=== PATIENT | male | born 1980 | race Two or more races ===

== ENCOUNTER 2024-11-16 18:45 | Emergency (ER) | payer BC, OTHER ==
[~2024-11-16] VITALS: Ht 182.9 cm; Wt 117.6 kg
[2024-11-16 19:52] LABS: Hematocrit 48.9 % (41.0-53.0); Hemoglobin 17.2 g/dL (13.5-17.5); Mean Corpuscular Hemoglobin 30.5 pg (28.0-32.0); Mean Corpuscular Volume 86.8 fL (80.0-100.0); Nucleated Red Blood Cells % 0.3 %
--- NOTE | 2024-11-16 20:07 | DVH ---
Exam: CT CT AB PEL WO CON-NO ORAL OR IV History: epig pain Comparison Study: CT ABD/PEL on DOS: 09/11/24 TECHNIQUE: Multidetector CT of the abdomen and pelvis was performed from lung bases to pubic symphysi s. Imaging was performed without IV contrast. Axial, coronal, and sagittal multiplanar reformats were obtained from the axial data set by the technologist. RADIATION DOSE: CTDI vol 22.90 mGy. DLP 1379.61 mGy.cm Findings: Limited evaluation of the solid organs in the absence of IV contrast. Lungs: The lung bases are clear. Liver: Hepatomegaly. Spleen: Splenomegaly measuring up to 14.6 cm. Pancreas: Unremarkable. Gallbladder: Prior cholecystectomy. Adrenals: Unremarkable Kidneys: Unremarkable. Pelvic Viscera: Unremarkable. Vasculature: Unremarkable. Retroperitoneum: Shotty retroperitoneal nodes. Bowel: No bowel obstruction. Musculoskeletal: A Schmorl's node encroaches upon the superior endplate of L3. Soft tissues: Moderate-sized right inguinal hernia containing bowel. Impression: 1. No acute abdominopelvic abnormality. 2. Hepatosplenomegaly. 3. Additional findings as detailed.
[2024-11-16 20:10] LABS: Alanine Aminotransferase 29 U/L (7-40); Albumin 4.4 g/dL (3.2-4.8); Alkaline Phosphatase 113 U/L (46-116); Anion Gap 7 (5-15); BUN/Creatinine Ratio 20.0 (10.0-20.0); Bilirubin, Total 1.0 mg/dL (0.2-1.0); Blood Urea Nitrogen 14 mg/dL (9-23); Calcium 9.0 mg/dL (8.7-10.4); Carbon Dioxide 28 mmol/L (20-31); Chloride 103 mmol/L (98-107); Glucose 92 mg/dL (74-106); Lipase 32 U/L (12-53); Potassium 4.2 mmol/L (3.5-5.1); Sodium 138 mmol/L (136-145); Total Protein 7.0 g/dL (5.7-8.2)
--- NOTE | 2024-11-16 20:39 | ED.PDOC ---
GI ASSESSMENT HPI Comments HPI: 44 year old male presents to the emergency department with a chief complaint of abdominal pain onset today (11/16/24) around 17:00. Patient has been experiencing constant, unspecified abdominal pain, tried Ibuprofen with no relief of symptoms. Patient has a RT inguinal hernia, has an appointment with general surgeon for a surgery date. Patient states he experiences this pain intermittently, has been constant since 17:00. Denies any nausea, vomiting, diarrhea, dysuria, hematuria, fever, chills, chest pain, shortness of breath, melena, blood in stool. No other symptoms or modifying factors present at this time. Initial Vitals BP: 131/76 HR: 66 RR: 16 O2: 98% Temp: 97.6 F Past Medical History: RT inguinal hernia Past Surgical History: cholecystectomy Social History: Denies ETOH, smoking, and drug use. Medications: Denies Allergies: NKDA ELIZARRA: ABD PAIN HPI: Poor Historian. REVIEW OF SYSTEMS: CONSTITUTIONAL: Denies acute: fever, diaphoresis, chills, generalized weakness. HEAD: Denies acute: headache, photophobia Eyes: Denies acute: Double vision, vision loss, eye pain, eye discharge. EARS: Denies acute: tinnitus, hearing loss, ear discharge, ear pain, THROAT: Denies acute: sore throat, swelling, difficulty swallowing , pain with swallowing, change in voice. NECK: Denies acute: neck pain, neck swelling, stiff neck. HEART: Denies acute : chest pain, palpitations, LUNGS: Denies acute: SOB, wheezing, cough, hemoptysis ABDOMEN: Denies acute: abdominal pain, Nausea, Vomiting, diarrhea, melena , hematemesis, hematochezia SKIN: Denies acute: rash, redness, lesions, itchiness. EXTREMITIES: Denies acute: calf pain, numbness, tingling, weakness, denies pain in extremity. Denies acute: Low back pain. Neuro: Denies acute: focal neurological deficit, motor or sensory focal neurological deficit, tremors, seizure like activity, confusion, dizziness, change in mental status, loss of bowel or bladder function, cauda equina like symptoms. : Denies acute: dysuria, hematuria, flank pain, increase in urinary frequency. PSYCH: Denies acute: hallucination, suicidal ideation, homicidal ideation. PHYSICAL EXAM: General: -----mild---acute distress, awake and alert. Head: normocephalic, atraumatic. Neck: supple, trachea is midline, no swelling. Throat: Normal phonation. Eyes:, no erythema, no purulent discharge, no proptosis, no icterus. Heart: regular rate, regular rhythm, no significant murmur appreciated. Lungs: no apparent respiratory distress, Able to speak in full sentences. No wheezing, no rhonchi, no crackles. No stridors Clear to auscultation bilaterally. Abdomen: Left upper quadrant , right lower mid axillary line, tender to palpation, right lower quadrant tenderness to palpation. non distended, soft, no guarding, no rebound, + bowel sounds. Neuro: Awake, Alert, oriented to name, self, situation, follows commands GCS=15. Speech is normal. Skin: no petechia, no purpura, no cyanosis, non-pale, not jaundice. Lower extremities: --no - Pitting edema no deformity, no focal swelling, no calf TTP. Makes eye contact. moves all four extremities. Face: no apparent facial droop. Ambulating in the ED independently. ED COURSE: DISCLAIMER: This medical document was created using an electronic medical record system with voice recognition software and computerized dictation system. Although this document has been carefully reviewed, there might still be some phonetic and typographical errors. Occasional wrong-word or "sound-alike" substitutions may have occurred due to the inherent limitations of voice recognition software. These areas are purely typographical due to imperfections of the software programs and do not reflect any compromise in the patient's medical care. Please read the chart carefully and recognize, using context, where these substitutions have occurred. Chief Complaint: Abdominal Pain Time Seen by MD: 20:30 Reviewed Notes: Medications, Allergies Allergies: Coded Allergies: No Known Drug Allergy (Verified Allergy, Unknown, 11/16/24) Information Source: Patient Mode of Arrival: Ambulatory Timing: Hours Duration: Since onset Prehospital treatment: None Quality: Sharp Vomitus: None Severity: Moderate Recent: None Recent Hx of: None Pain Location: Epigastric Modifying Factors: Nothing Associated sign and symptoms: Nausea, Abdominal Pain Past Medical History PAST MEDICAL HISTORY: Denies Surgical History: Cholecystectomy Family History Family History: Reviewed,noncontributory to illness, No family hx of Cancer, No family hx of DM, No family hx of Heart trish, No family hx of HTN, No family hx ofKidney trish, No family hx of Liver trish, No family hx of Lung trish, No family hx of Stroke Social History Smoker: Non-Smoker Alcohol: Denies ETOH Use Drugs: Denies Drug Use Lives In: Home Was a procedure done? Was a procedure done?: No GI differential Dx Differential Diagnosis: Other (DDX include but not limited to diverticulitis, colitis, gastroenteritis, acute abdomen, SBO, enteritis, constipation, volvulus, appendicitis, Gallbladder disease, choledocolithiasis, ascending cholangitis, pancreatitis, intraAbdominal mass/neoplasm, hepatitis, UTI, pylonephritis, kidney stone, aneurysm, dissection, Inflammatory bowel disease, gastroparesis, ischemic bowel.) X-Ray, Labs, Meds, VS Vital Signs Date Time Temp Pulse Resp B/P (MAP) Pulse Ox O2 Delivery O2 Flow Rate FiO2 11/16/24 22:44 98.4 18 18 130/98 (109) 97 98.4 11/16/24 21:13 97.5 61 20 133/75 (94) 100 97.5 11/16/24 18:49 97.6 66 16 131/76 98 97.6 Lab Test 11/16/24 20:35 11/16/24 19:25 Range/Units Urine Color Light-yellow Yellow Urine Clarity Clear Clear Urine pH 5.5 5.0-9.0 Urine Specific [place] 1.020 1.001-1.035 Urine Protein Negative Negative Urine Ketones Negative Negative Urine Blood Negative Negative /uL Urine Nitrite Negative Negative Urine Bilirubin Negative Negative Urine Urobilinogen Normal Negative mg/dL Urine Leukocyte Esterase Negative Negative /uL Urine RBC 2 0 - 3 /hpf Urine Microscopic WBC 5 H 0-3 /HPF Urine Squamous Epithelial Cells Few <5 /hpf Urine Bacteria None seen None Seen /hpf Urine Glucose Normal Normal mg/dL Urine Opiates Screen Neg NEGATIVE Urine Fentanyl Screen Neg NEGATIVE Urine Barbiturates Screen Neg NEGATIVE Urine Phencyclidine Screen Neg NEGATIVE Urine Amphetamines Screen Neg NEGATIVE Urine Benzodiazepines Screen Neg NEGATIVE Urine Cocaine Screen Neg NEGATIVE Urine Cannabinoids Screen Neg NEGATIVE White Blood Count 9.8 4.4-10.8 10^3/uL Red Blood Count 5.63 4.5-5.90 10^6/uL Hemoglobin 17.2 13.5-17.5 g/dL Hematocrit 48.9 41.0-53.0 % Mean Corpuscular Volume 86.8 80.0-100.0 fL Mean Corpuscular Hemoglobin 30.5 28.0-32.0 pg Mean Corpuscular Hemoglobin Concent 35.2 32.0-36.0 g/dL Red Cell Distribution Width 13.4 11.8-14.3 % Platelet Count 137 L 140-450 10^3/uL Mean Platelet Volume 9.9 6.9-10.8 fL Neutrophils (%) (Auto) 64.2 37.0-80.0 % Lymphocytes (%) (Auto) 27.7 10.0-50.0 % Monocytes (%) (Auto) 5.8 0.0-12.0 % Eosinophils (%) (Auto) 1.9 0.0-7.0 % Basophils (%) (Auto) 0.4 0.0-2.0 % Neutrophils # (Auto) 6.3 1.6-8.6 10 ^3/uL Lymphocytes # (Auto) 2.7 0.4-5.4 10 ^3/uL Monocytes # (Auto) 0.6 0-1.3 10 ^3/uL Eosinophils # (Auto) 0.2 0-0.8 10 ^3/uL Basophils # (Auto) 0 0-0.2 10 ^3/uL Nucleated Red Blood Cells 0.3 % Sodium Level 138 136-145 mmol/L Potassium Level 4.2 3.5-5.1 mmol/L Chloride Level 103 98-107 mmol/L Carbon Dioxide Level 28 20-31 mmol/L Anion Gap 7 5-15 Blood Urea Nitrogen 14 9-23 mg/dL Creatinine 0.70 0.700-1.30 mg/dL Glomerular Filtration Rate Calc 116 >90 mL/min BUN/Creatinine Ratio 20.0 10.0-20.0 Serum Glucose 92 74-106 mg/dL Lactic Acid Level 0.8 0.4-2.0 mmol/L Calcium Level 9.0 8.7-10.4 mg/dL Total Bilirubin 1.0 0.2-1.0 mg/dL Aspartate Amino Transferase (AST) 25 13-40 U/L Alanine Aminotransferase (ALT) 29 7-40 U/L Alkaline Phosphatase 113 46-116 U/L Troponin I High Sensitivity 51 </=54 ng/L Total Protein 7.0 5.7-8.2 g/dL Albumin 4.4 3.2-4.8 g/dL Lipase 32 12-53 U/L [facility] [id number] [place] [address] Ph: [phone] DIAGNOSTIC IMAGING Diagnostic Imaging Report : [id number] Signed PATIENT: CA RAMACHANDRANACCT: [id number] UNIT: [id number] : 1980 LOC: ER ROOM / BED: / AGE / SEX: 44 / M ADM STATUS: REG ER SERVICE 15 ORDERING PHYSICIAN: BRETT ELIAS DO PROCEDURE(s): ABPL - CT AB PEL WO CON-NO ORAL OR IV REASON: epig pain ORDER NUMBER(s): [id number], ACCESSION NUMBER(s): [id number] Exam: CT CT AB PEL WO CON-NO ORAL OR IV History: epig pain Comparison Study: CT ABD/PEL on DOS: 09/11/24 TECHNIQUE: Multidetector CT of the abdomen and pelvis was performed from lung bases to pubic symphysis. Imaging was performed without IV contrast. Axial, coronal, and sagittal multiplanar reformats were obtained from the axial data set by the technologist. RADIATION DOSE: CTDI vol 22.90 mGy. DLP 1379.61 mGy.cm Findings: Limited evaluation of the solid organs in the absence of IV contrast. Lungs: The lung bases are clear. Liver: Hepatomegaly. Spleen: Splenomegaly measuring up to 14.6 cm. Pancreas: Unremarkable. Gallbladder: Prior cholecystectomy. Adrenals: Unremarkable Kidneys: Unremarkable. Pelvic Viscera: Unremarkable. Vasculature: Unremarkable. Retroperitoneum: Shotty retroperitoneal nodes. Bowel: No bowel obstruction. Musculoskeletal: A Schmorl's node encroaches upon the superior endplate of L3. Soft tissues: Moderate-sized right inguinal hernia containing bowel. Impression: 1. No acute abdominopelvic abnormality. 2. Hepatosplenomegaly. 3. Additional findings as detailed. ATED BY: PARIS LEONARD MD DICTATED DATE/TIME: 11/16/242003 SIGNED BY: PARIS LEONARD MD SIGNED DATE/TIME: 11/16/242003 CC: Time of 1ST Reevaluation: 21:00 Reevaluation 1ST: Unchanged Patient Education/Counseling: Diagnosis, Treatment Family Education/Counseling: No Family Present Comments MDM: patient presented with the above HPI.---abdominal pain---workup was initiated. patient was found with the above mentioned diagnosis. the following medications were ordered: please refer to order lists of meds and tests obtained by myself Dr. Elias. Patient ED course and VS have been stabilized. Patient has been reassessed in the ED and remained in a stable condition. Pertinent incidental findings were discussed with the patient and/or family. Patient/family voices understanding and is agreeable with plan. Patient has been observed in the ED adequate length of time to insure improvement/stability. Escalation of care considered: Consideration of escalation to observation or admission Patient was DISCHARGED home in a stable condition. All the reports of any imaging studies that were ordered by myself were reviewed by myself. Departure 1 Departure Time of Disposition: 21:54 Impression: Primary Impression: Abdominal pain Additional Impression: Hepatosplenomegaly Disposition: 01 HOME / SELF CARE / HOMELESS Condition: Stable Additional Instructions: Additional instructions: Please read all instructions provided in this packet carefully. You MUST follow-up with your primary care/family doctor in 1 to 2 days. If you are unable to see your primary care/family doctor, please return to our emergency room for re-assessment and re-evaluation in 1 to 2 days. Return to the emergency room here in our facility or to the nearest ER [facility] if your symptoms change or worsen. CONSULTATIONS: you MUST Follow-up for consultation as soon as possible with: -general surgery and gastroenterology in 1-2 days. Please call for appointment. You MUST call the consultants office yourself to make an appointment. You may need to arrange that through your insurance and/or your primary/family doctor. If you are unable to see the telecommunications consultant in 1 to 2 days, you must return to our emergency room (or any other ER of your choice) for re-assessment and re- evaluation. Adequate fluid hydration. Although you have been discharged from the Emergency Department, this does not mean that you have a "clean bill of health". No definitive diagnosis for your symptoms has been made today. It is possible that you are in the process of developing a serious illness. This is why you must return to the ED without fail if any new or worsening symptoms develop. Avoid fatty greasy spicy food. Avoid caffeinated products. Avoid NSAIDs. Below is a copy of your radiological report for follow up: [place] [address] Ph: [phone] DIAGNOSTIC IMAGING Diagnostic Imaging Report : [id number] Signed PATIENT: CA RAMACHANDRAN ACCT: [id number] UNIT: [id number] : 1980 LOC: ER ROOM / BED: / AGE / SEX: 44 / M ADM STATUS: REG ER SERVICE 15 ORDERING PHYSICIAN: BRETT ELIAS DO PROCEDURE(s): ABPL - CT AB PEL WO CON-NO ORAL OR IV REASON: epig pain ORDER NUMBER(s): [id number], ACCESSION NUMBER(s): [id number] Exam: CT CT AB PEL WO CON-NO ORAL OR IV History: epig pain Comparison Study: CT ABD/PEL on DOS: 09/11/24 TECHNIQUE: Multidetector CT of the abdomen and pelvis was performed from lung bases to pubic symphysis. Imaging was performed without IV contrast. Axial, coronal, and sagittal multiplanar reformats were obtained from the axial data set by the technologist. RADIATION DOSE: CTDI vol 22.90 mGy. DLP 1379.61 mGy.cm Findings: Limited evaluation of the solid organs in the absence of IV contrast. Lungs: The lung bases are clear. Liver: Hepatomegaly. Spleen: Splenomegaly measuring up to 14.6 cm. Pancreas: Unremarkable. Gallbladder: Prior cholecystectomy. Adrenals: Unremarkable Kidneys: Unremarkable. Pelvic Viscera: Unremarkable. Vasculature: Unremarkable. Retroperitoneum: Shotty retroperitoneal nodes. Bowel: No bowel obstruction. Musculoskeletal: A Schmorl's node encroaches upon the superior endplate of L3. Soft tissues: Moderate-sized right inguinal hernia containing bowel. Impression: 1. No acute abdominopelvic abnormality. 2. Hepatosplenomegaly. 3. Additional findings as detailed. ATED BY: PARIS LEONARD MD DICTATED DATE/TIME: 11/16/242003 SIGNED BY: PARIS LEONARD MD SIGNED DATE/TIME: 11/16/242003 CC: Discharged With: Self Critical Care Note Critical Care Time?: No I personally scribed for BRETT ELIAS DO ([email or web address]) on 11/16/24 at 20:39. Electronically submitted by Meaghan Sanchez ([email or web address]). BRETT ELIAS DO Nov 16, 2024 20:39
[2024-11-16 21:10] LABS: Urine Protein, UAD Negative (Negative)
[2024-11-16 21:19] LABS: Amphetamine Screen, Urine Neg (NEGATIVE); Barbiturate Scree,Urine Neg (NEGATIVE); Benzodiazephine Screen, Urine Neg (NEGATIVE); Cannabinoid Screen, Urine Neg (NEGATIVE); Cocaine Screen, Urine Neg (NEGATIVE); Opiate Scree,Urine Neg (NEGATIVE); Phencyclidine Screen, Urine Neg (NEGATIVE)
[2024-11-16] MEDS: LIDOCAINE VISCOUS 2% 15ML UD PO ONE (22:40)
[2024-11-16] MEDS: SUCRALFATE 1 GM TAB PO ONE (22:40)
[2024-11-16] MEDS: PANTOPRAZOLE 40 MG TAB PO ONE (22:40)
[2024-11-16 22:44] VITALS: BP 130/98; PULSE 18; RESP 18; TEMP 98.4; O2SAT 97
[2024-11-16] MEDS: KETOROLAC TROMETH 30 MG/ML 1ML VIAL IV ONE (22:45)
== END 2024-11-16 22:50 | disposition home or self-care (01) ==
LOC: ER 18:50
DX: R16.2 Hepatomegaly with splenomegaly, not elsewhere classified (principal); R10.9 Unspecified abdominal pain; Z90.49 Acquired absence of other specified parts of digestive tract; Z79.899 Other long term (current) drug therapy
CPT/HCPCS: 36415; 74176; 80053; 80307; 81001; 83605; 83690; 84484; 85025; 96374; 99285; J1885

== ENCOUNTER 2024-11-24 13:22 | Inpatient (IN) | payer BC ==
[~2024-11-24] VITALS: Ht 182.9 cm; Wt 115.2 kg
--- NOTE | 2024-11-24 14:07 | ED.PDOC ---
GI ASSESSMENT HPI Comments 44 y/o M, with no prior medical history presents to the ED for CC of of abdominal pain. Patient states, he has been experiencing diffuse abdominal pain with associated nausea and vomiting x1day. Patient reports, that he is supposed to receive a hernia repair surgery on (12/07/24). Patient denies diarrhea, chills, fever, or sweats. No other symptoms or modifying factors are present at this time. Chief Complaint: Abdominal Pain Time Seen by MD: 13:30 Reviewed Notes: Nurses Notes, Medications, Allergies Allergies: Coded Allergies: No Known Drug Allergy (Verified Allergy, Unknown, 11/16/24) Information Source: Patient Mode of Arrival: Ambulatory Timing: Days Duration: Since onset Prehospital treatment: None Quality: None Vomitus: Watery Stool: Normal Severity: Moderate Recent: None Recent Hx of: None Pain Location: Diffuse Modifying Factors: Nothing Associated sign and symptoms: Vomiting, Abdominal Pain Past Medical History PAST MEDICAL HISTORY: Denies Surgical History: Cholecystectomy Family History Family History: Reviewed,noncontributory to illness, No family hx of Cancer, No family hx of DM, No family hx of Heart trish, No family hx of HTN, No family hx ofKidney trish, No family hx of Liver trish, No family hx of Lung trish, No family hx of Stroke Social History Smoker: Non-Smoker Alcohol: Denies ETOH Use Drugs: Denies Drug Use Lives In: Home Constitutional: denies: chills, diaphoresis, fatigue, fever, malaise, sweats, weakness, others EENTM: denies: blurred vision, double vision, ear bleeding, ear discharge, ear drainage, ear pain, ear ringing, eye pain, eye redness, hearing loss, mouth pain, mouth swelling, nasal discharge, nose bleeding, nose congestion, nose pain, photophobia, tearing, throat pain, throat swelling, voice changes, others Respiratory: denies: cough, hemoptysis, orthopnea, SOB at rest, shortness of breath, SOB with excertion, stridor, wheezing, others Cardiovascular: denies: chest pain, dizzy spells, diaphoresis, Dyspnea on exertion, edema, irregular heart beat, left arm pain, lightheadedness, palpitations, PND, syncope, others Gastrointestinal: reports: abdominal pain, nausea, vomiting; denies: abdomen distended, blood streaked bowels, constipated, diarrhea, dysphagia, difficulty swallowing, hematemesis, melena, poor appetite, poor fluid intake, rectal bleeding, rectal pain, others Genitourinary: denies: burning, dysuria, flank pain, frequency, hematuria, incontinence, penile discharge, penile sore, pain, testicle pain, testicle swelling, urgency, others Neurological: denies: dizziness, fainting, headache, left sided numbness, left sided weakness, numbness, paresthesia, pre-existing deficit, right sided numbness, right sided weakness, seizure, speech problems, tingling, tremors, weakness, others Musculoskeletal: denies: back pain, gout, joint pain, joint swelling, muscle pain, muscle stiffness, neck pain, others Integumetry: denies: bruises, change in color, change in hair/nails, dryness, laceration, lesions, lumps, rash, wounds, others Allergic/Immunocompromised: denies: Difficulty Healing, Frequent Infections, Hives, Itching, others Hematologic/Lymphatic: denies: anemia, blood clots, easy bleeding, easy bruising, swollen glands, others Endocrine: denies: excessive hunger, excessive sweating, excessive thirst, excessive urination, flushing, intolerance to cold, intolerance to heat, unexplained weight gain, unexplained weight loss, others Psychiatric: denies: anxiety, bipolar disorder, depression, hopeless, panic disorder, schizophrenia, sleepless, suicidal, others All Other Systems: Reviewed and Negative Physical Exam General Appearance: No Apparent Distress, Normal HEENT: Normal ENT Inspection, Pharynx Normal Neck: Full Range of Motion, Non-Tender, Normal, Normal Inspection Respiratory: Chest Non-Tender, Lungs Clear, No Accessory Muscle Use, No Respiratory Distress, Normal Breath Sounds Cardiovascular: No Edema, No Murmur, No Gallop, Normal Peripheral Pulses, Regular Rate/Rhythm Breast Exam: Deferred Gastrointestinal: Diffuse, No Organomegaly, No Pulsatile Mass, Normal Bowel Sounds, Soft, Tenderness Genitalia: Deferred Pelvic: Deferred Rectal: Deferred Extremities: No calf tenderness, Normal capillary refill, Normal inspection, Normal range of motion, Non-tender, No pedal edema Musculoskeletal : Apperance: Normal Neurologic: Alert, logistics engineer II-XII nml as Tested, No Motor Deficits, Normal Affect, Normal Mood, No Sensory Deficits Cerebellar Function: Normal Reflexes: Normal Skin: Dry, Normal Color, Warm Lymphatic: No Adenopathy Was a procedure done? Was a procedure done?: No GI differential Dx Differential Diagnosis: Hernia, Bacterial, Viral X-Ray, Labs, Meds, VS Vital Signs Date Time Temp Pulse Resp B/P (MAP) Pulse Ox O2 Delivery O2 Flow Rate FiO2 11/24/24 15:38 65 19 125/79 11/24/24 13:25 98.1 85 16 143/78 95 98.1 Lab Test 11/24/24 14:04 Range/Units White Blood Count 9.3 4.4-10.8 10^3/uL Red Blood Count 6.00 H 4.5-5.90 10^6/uL Hemoglobin 18.0 H 13.5-17.5 g/dL Hematocrit 51.9 41.0-53.0 % Mean Corpuscular Volume 86.5 80.0-100.0 fL Mean Corpuscular Hemoglobin 30.0 28.0-32.0 pg Mean Corpuscular Hemoglobin Concent 34.7 32.0-36.0 g/dL Red Cell Distribution Width 13.2 11.8-14.3 % Platelet Count 148 140-450 10^3/uL Mean Platelet Volume 9.4 6.9-10.8 fL Neutrophils (%) (Auto) 69.2 37.0-80.0 % Lymphocytes (%) (Auto) 20.4 10.0-50.0 % Monocytes (%) (Auto) 7.3 0.0-12.0 % Eosinophils (%) (Auto) 2.5 0.0-7.0 % Basophils (%) (Auto) 0.6 0.0-2.0 % Neutrophils # (Auto) 6.4 1.6-8.6 10 ^3/uL Lymphocytes # (Auto) 1.9 0.4-5.4 10 ^3/uL Monocytes # (Auto) 0.7 0-1.3 10 ^3/uL Eosinophils # (Auto) 0.2 0-0.8 10 ^3/uL Basophils # (Auto) 0.1 0-0.2 10 ^3/uL Nucleated Red Blood Cells 0.0 % Sodium Level 137 136-145 mmol/L Potassium Level 4.1 3.5-5.1 mmol/L Chloride Level 103 98-107 mmol/L Carbon Dioxide Level 26 20-31 mmol/L Anion Gap 8 5-15 Blood Urea Nitrogen 12 9-23 mg/dL Creatinine 0.71 0.700-1.30 mg/dL Glomerular Filtration Rate Calc 115 >90 mL/min BUN/Creatinine Ratio 16.9 10.0-20.0 Serum Glucose 116 H 74-106 mg/dL Calcium Level 8.9 8.7-10.4 mg/dL Current Medications Medications (Trade) Dose Ordered Sig/Yg Route Start Time Stop Time Status Last Admin Sodium Chloride 1,000 ml @ 1,000 mls/hr Q1H ONCE IV 11/24/24 13:45 11/24/24 14:44 DC 11/24/24 15:36 Morphine Sulfate 4 mg ONCE ONCE IV 11/24/24 13:45 11/24/24 13:46 DC 11/24/24 15:38 Ondansetron HCl (Zofran) 4 mg ONCE ONCE IV 11/24/24 13:45 11/24/24 13:46 DC 11/24/24 15:38 [place] [id number] Ph: [phone] DIAGNOSTIC IMAGING Diagnostic Imaging Report : [id number] Signed PATIENT: CA RAMACHANDRANACCT: [id number] UNIT: [id number] : 1980 LOC: ER ROOM / BED: / AGE / SEX: 44 / M ADM STATUS: REG ER SERVICE 1342 ORDERING PHYSICIAN: SANYA CHAVEZ MD PROCEDURE(s): ABPLIV - CT AB PEL WITH IV CON ONLY REASON: abdominal pain ORDER NUMBER(s): [id number], ACCESSION NUMBER(s): [id number] Indication: abdominal pain Technique: CT axial images of the abdomen and pelvis are obtained without contrast. Reformats obtained. Radiation Dose Information: CTDI volume is 23 mGy. Dose-length product is 1409 mGy*cm Comparison: None FINDINGS: There is limited interpretation of the abdomen and pelvis without administration of intravenous contrast. The lung bases demonstrate no pleural effusion. Adrenal glands, pancreas unremarkable in shape. Cholecystectomy. Cirrhotic mo rphology liver. Spleen enlarged measuring 13.1 cm craniocaudal. No hydronephrosis. Stomach is partially distended. Colonic diverticula. Moderate volume stool in the colon. No secondary signs for appendicitis. There is bowel wall thickening of the terminal ileum. Fecal like contents within the small bowel. Moderate distention small bowel loops. Abdominal aorta normal in caliber. Bladder partially distended. There is a right inguinal hernia which contains small bowel measuring 18 x 8.3 cm. There is a small amount of fluid within the hernia. There is inflammatory stranding of the fat within the hernia as well as the placenta leading into the hernia from the lower abdomen/pelvis Bladder partially distended. No inguinal lymphadenopathy. Moderate bilateral sacroiliac degenerative joint disease. Moderate thoracolumbar degenerative disc disease. IMPRESSION: Limited evaluation without contrast. Large right inguinal hernia containing small bowel loops measuring 18 x 8.3 cm. There is fluid within the hernia. There is also mild stranding of the fat. Correlate for incarceration / strangulation. Recommend surgical consultation for further evaluation. Bowel wall edema and thickening of the terminal ileum which could be secondary to inflammatory bowel disease, enteritis. Fecal like contents within the small bowel which can be seen with ileus, hypomotility, bowel obstruction. Cirrhotic morphology liver, splenomegaly. Moderate volume stool within the colon. Other findings as described. ATED BY: DOMINIQUE MIRANDA MD DICTATED DATE/TIME: 11/24/241628 SIGNED BY: DOMINIQUE MIRANDA MD SIGNED DATE/TIME: 11/24/241628 CC: Time of 1ST Reevaluation: 14:00 Reevaluation 1ST: Unchanged Patient Education/Counseling: Diagnosis, Treatment Family Education/Counseling: No Family Present SEPSIS Sepsis Screen Date sepsis recognized/suspect: Nov 24, 2024 Time Sepsis recognized/suspect: 1326 Recent Procedure: No On Antibiotic Therapy: No Respiratory Rate >20: No Heart Rate >90: No Temp<36 C (96.8 F) or >38.3 C: No SBP <90 or MAP <65 mmHG: No New Acute Mental Status Change: No Is the patient on CPAP, BIPAP,: No Physician Orders Ct Ab Pel With Iv Con Only (11/24/24 13:42) Vital Signs Date Time Temp Pulse Resp B/P (MAP) Pulse Ox O2 Delivery O2 Flow Rate FiO2 11/24/24 15:38 65 19 125/79 11/24/24 13:25 98.1 85 16 143/78 95 98.1 Laboratory Tests Test 11/24/24 14:04 White Blood Count 9.3 10^3/uL (4.4-10.8) Medications Medications Dose Ordered Sig/Yg Route Start Time Stop Time Status Last Admin Dose Admin Morphine Sulfate 4 mg ONCE ONCE IV 11/24/24 13:45 11/24/24 13:46 DC 11/24/24 15:38 Ondansetron HCl 4 mg ONCE ONCE IV 11/24/24 13:45 11/24/24 13:46 DC 11/24/24 15:38 Sodium Chloride 1,000 ml @ 1,000 mls/hr Q1H ONCE IV 11/24/24 13:45 11/24/24 14:44 DC 11/24/24 15:36 Departure 1 Departure Time of Disposition: 17:06 (Patient presented with abdominal pain that was concerning for possible appendicits, gastritis, cholecystitis, colitis, gastroenteritis, sbo, or orther possible surgical emergency. Data: 1. I ordered and reviewed the result of at least 3 labs including a CBC, BMP, and Urinalysis. 2. I independently interpreted the following tests: CT Abdomen and Pelvis is concerning for incarcerated already .Risk:This patient has a high risk of morbidity due to further diagnostic testing or treatment and may suffer from an acute abdominal process disorder. Workup reveals possible incarcerated hernia and patient should be admitted for further workup. and possible expert consultation. Discussed with surgery and they are come and evaluate the patient) Impression: Primary Impression: Incarcerated hernia Additional Impression: Intractable abdominal pain Disposition: ADMITTED INPATIENT Admit to: Med Surg Condition: Serious Critical Care Note Critical Care Time?: Yes Critical care comment: Intractable abdominal pain concerning for incarcerated hernia Authorized and Performed by: Sanya Chavez MD Total critical care time: Approximately 39 minutes Due to a high probability of clinically significant, life threatening deterioration, the patient required my highest level of preparedness to intervene emergently and I personally spent this critical care time directly and personally managing the patient. This critical care time included obtaining a history; examining the patient; pulse oximetry; ordering and review of studies; arranging urgent treatment with development of a management plan; evaluation of patient's response to treatment; frequent reassessment; and, discussions with other providers. This critical care time was performed to assess and manage the high probability of imminent, life-threatening deterioration that could result in multi-organ failure. It was exclusive of separately billable procedures and treating other patients and teaching time. Please see my other sections and the rest of the note for further information on patient assessment and treatment. Stability Stability form required: No Heart Score Heart Score: Heart Score Response (Comments) Value History N/A 0 EKG N/A 0 Age N/A 0 Risk Factors N/A 0 Troponin N/A 0 Total 0 I personally scribed for SANYA CHAVEZ MD ([email or web address]) on 11/24/24 at 14:07. Electronically submitted by Jenna Palm ([email or web address]). I personally scribed for SANYA CHAVEZ MD ([email or web address]) on 11/24/24 at 16:55. Electronically submitted by Jenna Palm [email or web address]). SANYA CHAVEZ MD Nov 24, 2024 14:07
[2024-11-24 14:11] LABS: Hematocrit 51.9 % (41.0-53.0); Hemoglobin 18.0 g/dL (13.5-17.5); Mean Corpuscular Hemoglobin 30.0 pg (28.0-32.0); Mean Corpuscular Volume 86.5 fL (80.0-100.0); Nucleated Red Blood Cells % 0.0 %
[2024-11-24 14:16] LABS: Chloride 103 mmol/L (98-107); Potassium 4.1 mmol/L (3.5-5.1); Sodium 137 mmol/L (136-145)
[2024-11-24 14:17] LABS: Anion Gap 8 (5-15); Calcium 8.9 mg/dL (8.7-10.4); Carbon Dioxide 26 mmol/L (20-31)
[2024-11-24 14:22] LABS: BUN/Creatinine Ratio 16.9 (10.0-20.0); Blood Urea Nitrogen 12 mg/dL (9-23)
[2024-11-24 14:23] LABS: Glucose 116 mg/dL (74-106)
[2024-11-24] MEDS: IOHEXOL 300 MG/ML 100ML BOTTLE IJ ONE (15:33)
[2024-11-24] MEDS: SODIUM CHLORIDE 0.9% 1,000 ML IV ONE (15:36)
[2024-11-24] MEDS: ONDANSETRON HCL 4 MG/2 ML VIAL IV ONE ×2 (15:38→18:18)
[2024-11-24] MEDS: MORPHINE SULFATE 4 MG/ML SYR/VIAL IV ONE ×2 (15:38→18:18)
--- NOTE | 2024-11-24 16:28 | DVH ---
Indication: abdominal pain Technique: CT axial images of the abdomen and pelvis are obtained without contrast. Reformats obtaine d. Radiation Dose Information: CTDI volume is 23 mGy. Dose-length product is 1409 mGy*cm Comparison: None FINDINGS: There is limited interpretation of the abdomen and pelvis without administration of intravenous contr ast. The lung bases demonstrate no pleural effusion. Adrenal glands, pancreas unremarkable in shape. Cholecystectomy. Cirrhotic morphology liver. Spleen enlarged measuring 13.1 cm craniocaudal. No hydronephrosis. Stomach is partially distended. Colonic diverticula. Moderate volume stool in the colon. No secondary signs for appendicitis. There i s bowel wall thickening of the terminal ileum. Fecal like contents within the small bowel. Moderate distention small bowel loops. Abdominal aorta normal in caliber. Bladder partially distended. There is a right inguinal hernia which contains small bowel measuring 18 x 8.3 cm. There is a small amount of fluid within the hernia. There is inflammatory stranding of the fat within the hernia as w ell as the placenta leading into the hernia from the lower abdomen/pelvis Bladder partially distended. No inguinal lymphadenopathy. Moderate bilateral sacroiliac degenerative joint disease. Moderate thoracolumbar degenerative disc disease. IMPRESSION: Limited evaluation without contrast. Large right inguinal hernia containing small bowel loops measuring 18 x 8.3 cm. There is fluid withi n the hernia. There is also mild stranding of the fat. Correlate for incarceration / strangulation. Recommend surgical consultation for further evaluation. Bowel wall edema and thickening of the terminal ileum which could be secondary to inflammatory bowel disease, enteritis. Fecal like contents within the small bowel which can be seen with ileus, hypomoti lity, bowel obstruction. Cirrhotic morphology liver, splenomegaly. Moderate volume stool within the colon. Other findings as described.
[2024-11-24 17:50] VITALS: PULSE 61; RESP 17; O2SAT 97
--- NOTE | 2024-11-24 17:52 | DVHINCON2 ---
Consultation - Surgical Date Seen: Nov 24, 2024 Referring Physician Reason for Consultation Right inguinal hernia History of Present Illness History of Present Illness this is a 44-year-old male who presented to the ED with epigastric abdominal pain, with occasional nausea and vomiting. States that this has been a recurrent problem and was seen in the ED for the same problem last week. He does not attribute his symptoms to any particular foods. States that he has reflux also and feels like acid is coming up into the esophagus, has never had an EGD before. Patient had a cholecystectomy done. States that he does not drink alcohol daily or take any NSAIDs in a daily basis, although he takes ibuprofen occasionally for pain. Patient denies any obstructive symptoms his last bowel movement was this morning he goes daily to the bathroom. Denies fevers, chills, changes in urinary or stooling habits. Denies any blood in the stool or emesis. I was consulted because he has a large right-sided inguinal hernia that has been present since September he is currently scheduled for surgery on December 07, [address] Starkey. Patient is able to reduce the hernia. Hernia causes him occasional pain. Past Medical/Surgical History Past Medical/Surgical History PMH: Cirrhosis PSH laparoscopic cholecystectomy Family and Social History Family and Social History Family history noncontributory ETOH occasional T Ob vapes daily Drugs denies Allergies and medications Allergies: Coded Allergies: No Known Drug Allergy (Verified Allergy, Unknown, 11/16/24) Review of systems Review of Systems: HEENT:Normal, CVS:Normal, RESPIRATORY:Normal, GI:Abnormal (See HPI), :Abnormal (See HPI), MSK:Normal, NEURO:Normal Examination Vital signs Vital Signs Date Time Temp Pulse Resp B/P (MAP) Pulse Ox O2 Delivery O2 Flow Rate FiO2 11/24/24 15:38 65 19 125/79 11/24/24 13:25 98.1 95 98.1 Laboratory Labs Test 11/24/24 14:04 Range/Units White Blood Count 9.3 4.4-10.8 10^3/uL Red Blood Count 6.00 H 4.5-5.90 10^6/uL Hemoglobin 18.0 H 13.5-17.5 g/dL Hematocrit 51.9 41.0-53.0 % Mean Corpuscular Volume 86.5 80.0-100.0 fL Mean Corpuscular Hemoglobin 30.0 28.0-32.0 pg Mean Corpuscular Hemoglobin Concent 34.7 32.0-36.0 g/dL Red Cell Distribution Width 13.2 11.8-14.3 % Platelet Count 148 140-450 10^3/uL Mean Platelet Volume 9.4 6.9-10.8 fL Neutrophils (%) (Auto) 69.2 37.0-80.0 % Lymphocytes (%) (Auto) 20.4 10.0-50.0 % Monocytes (%) (Auto) 7.3 0.0-12.0 % Eosinophils (%) (Auto) 2.5 0.0-7.0 % Basophils (%) (Auto) 0.6 0.0-2.0 % Neutrophils # (Auto) 6.4 1.6-8.6 10 ^3/uL Lymphocytes # (Auto) 1.9 0.4-5.4 10 ^3/uL Monocytes # (Auto) 0.7 0-1.3 10 ^3/uL Eosinophils # (Auto) 0.2 0-0.8 10 ^3/uL Basophils # (Auto) 0.1 0-0.2 10 ^3/uL Nucleated Red Blood Cells 0.0 % Sodium Level 137 136-145 mmol/L Potassium Level 4.1 3.5-5.1 mmol/L Chloride Level 103 98-107 mmol/L Carbon Dioxide Level 26 20-31 mmol/L Anion Gap 8 5-15 Blood Urea Nitrogen 12 9-23 mg/dL Creatinine 0.71 0.700-1.30 mg/dL Glomerular Filtration Rate Calc 115 >90 mL/min BUN/Creatinine Ratio 16.9 10.0-20.0 Serum Glucose 116 H 74-106 mg/dL Calcium Level 8.9 8.7-10.4 mg/dL Examination: GENERAL:Normal, ABDOMEN:Normal (Nondistended, soft, depressible, nontender. Right-sided inguinal hernia with large defect, intestinal contents, easily reducible, no overlying skin changes, mild tenderness on reduction.) Problem List/Assessment/Plan Problems: (1) Reducible right inguinal hernia Assessment and Plan is a 44-year-old male who presented to the ED with upper abdominal pain with occasional nausea and vomiting; he has had these symptoms in the past and states that the epigastric pain usually lasts 2-3 hours before self resolution. I was consulted due to large right-sided inguinal hernia. Hernia defect is 3.[address] was reviewed and I saw small bowel loops within the hernia sac in the scrotum, bowel wall lights up which means that it has adequate perfusion. I was able to reduce the hernia easily at bedside and patient states he is able to reduce the hernia home. At this point there is no indication for emergent hernia repair. He has an appointment on December 07, 2024 for hernia surgery with Dr. Starkey. Since patient is going to get admitted for possible EGD, I will let Dr. Starkey no that the patient is here in case he has other plans with the patient. Plan discussed with Plan discussed with: Patient Visit Coding Surgery Date of Service if different f: Nov 24, 2024 Billing Provider: VALERIA ABDALLA MD Surgery Visit Codes: 97462 - INP CONSULT <110 MIN VALERIA ABDALLA MD Nov 24, 2024 17:52
--- NOTE | 2024-11-24 18:10 | DVHHP2 ---
History of Present Illness Reason for Visit: Abdominal pain History of Present Illness 44-year-old presents for evaluation of abdominal pain. Patient endorses a one day history of epigastric abdominal pain with associated nausea and vomiting. He states having an upcoming right inguinal surgery scheduled for . No diarrhea or constipation. No fever or chills. Past Medical History Denies Past Surgical History Cholecystectomy Family History Noncontributory Smoke: No ALCOHOL: occassional Drugs: None Lives: with Family Review of Systems Review of Systems Review of systems are currently negative otherwise addressed in HPI. Allergies: Coded Allergies: No Known Drug Allergy (Verified Allergy, Unknown, 11/16/24) Exam Vital Signs Vital Signs Date Time Temp Pulse Resp B/P (MAP) Pulse Ox O2 Delivery O2 Flow Rate FiO2 11/24/24 15:38 65 19 125/79 11/24/24 13:25 98.1 95 98.1 Exam Gen: 44-year-old male in mild distress Skin: Warm, dry, normal color and texture, no rash. HEENT: Normocephalic atraumatic, mucous membranes moist and pink. Neck: Cervical and supraclavicular nodes normal without enlargement, trachea is midline, thyroid gland is normal without masses. Pulmonary: Clear to auscultation and percussion bilaterally. Cardiac: Regular rate and rhythm. No murmur Abdomen: Soft, nontender, nondistended, bowel sounds present all 4 quadrants, no guarding, no rigidity, no organomegaly, right inguinal hernia reducible. Extremities: No cyanosis, clubbing, no edema Neuro: Cranial nerves II through XII grossly intact, normal affect and speech, no focal motor deficits. Labs/Xrays ORDERING PHYSICIAN: SANYA IBRAHIM MD PROCEDURE(s): ABPLIV - CT AB PEL WITH IV CON ONLY REASON: abdominal pain ORDER NUMBER(s): [id number], ACCESSION NUMBER(s): [id number] Indication: abdominal pain Technique: CT axial images of the abdomen and pelvis are obtained without contrast. Reformats obtained. Radiation Dose Information: CTDI volume is 23 mGy. Dose-length product is 1409 mGy*cm Comparison: None FINDINGS: There is limited interpretation of the abdomen and pelvis without administration of intravenous contrast. The lung bases demonstrate no pleural effusion. Adrenal glands, pancreas unremarkable in shape. Cholecystectomy. Cirrhotic morphology liver. Spleen enlarged measuring 13.1 cm craniocaudal. No hydronephrosis. Stomach is partially distended. Colonic diverticula. Moderate volume stool in the colon. No secondary signs for appendicitis. There is bowel wall thickening of the terminal ileum. Fecal like contents within the small bowel. Moderate distention small bowel loops. Abdominal aorta normal in caliber. Bladder partially distended. There is a right inguinal hernia which contains small bowel measuring 18 x 8.3 cm. There is a small amount of fluid within the hernia. There is inflammatory stranding of the fat within the hernia as well as the placenta leading into the hernia from the lower abdomen/pelvis Bladder partially distended. No inguinal lymphadenopathy. Moderate bilateral sacroiliac degenerative joint disease. Moderate thoracolumbar degenerative disc disease. IMPRESSION: Limited evaluation without contrast. Large right inguinal hernia containing small bowel loops measuring 18 x 8.3 cm. There is fluid within the hernia. There is also mild stranding of the fat. Correlate for incarceration / strangulation. Recommend surgical consultation for further evaluation. Bowel wall edema and thickening of the terminal ileum which could be secondary to inflammatory bowel disease, enteritis. Fecal like contents within the small bowel which can be seen with ileus, hypomotility, bowel obstruction. Cirrhotic morphology liver, splenomegaly. Moderate volume stool within the colon. Other findings as described. Labs Test 11/24/24 18:00 11/24/24 14:04 Range/Units White Blood Count 9.3 4.4-10.8 10^3/uL Red Blood Count 6.00 H 4.5-5.90 10^6/uL Hemoglobin 18.0 H 13.5-17.5 g/dL Hematocrit 51.9 41.0-53.0 % Mean Corpuscular Volume 86.5 80.0-100.0 fL Mean Corpuscular Hemoglobin 30.0 28.0-32.0 pg Mean Corpuscular Hemoglobin Concent 34.7 32.0-36.0 g/dL Red Cell Distribution Width 13.2 11.8-14.3 % Platelet Count 148 140-450 10^3/uL Mean Platelet Volume 9.4 6.9-10.8 fL Neutrophils (%) (Auto) 69.2 37.0-80.0 % Lymphocytes (%) (Auto) 20.4 10.0-50.0 % Monocytes (%) (Auto) 7.3 0.0-12.0 % Eosinophils (%) (Auto) 2.5 0.0-7.0 % Basophils (%) (Auto) 0.6 0.0-2.0 % Neutrophils # (Auto) 6.4 1.6-8.6 10 ^3/uL Lymphocytes # (Auto) 1.9 0.4-5.4 10 ^3/uL Monocytes # (Auto) 0.7 0-1.3 10 ^3/uL Eosinophils # (Auto) 0.2 0-0.8 10 ^3/uL Basophils # (Auto) 0.1 0-0.2 10 ^3/uL Nucleated Red Blood Cells 0.0 % Sodium Level 137 136-145 mmol/L Potassium Level 4.1 3.5-5.1 mmol/L Chloride Level 103 98-107 mmol/L Carbon Dioxide Level 26 20-31 mmol/L Anion Gap 8 5-15 Blood Urea Nitrogen 12 9-23 mg/dL Creatinine 0.71 0.700-1.30 mg/dL Glomerular Filtration Rate Calc 115 >90 mL/min BUN/Creatinine Ratio 16.9 10.0-20.0 Serum Glucose 116 H 74-106 mg/dL Calcium Level 8.9 8.7-10.4 mg/dL SEPSIS Sepsis Screen Date sepsis recognized/suspect: Nov 24, 2024 Time Sepsis recognized/suspect: 1326 Recent Procedure: No On Antibiotic Therapy: No Respiratory Rate >20: No Heart Rate >90: No Temp<36 C (96.8 F) or >38.3 C: No SBP <90 or MAP <65 mmHG: No New Acute Mental Status Change: No Is the patient on CPAP, BIPAP,: No Physician Orders Ct Ab Pel With Iv Con Only (11/24/24 13:42) * Surgical Consult (11/24/24 ) Lactic Acid W/ Reflex Order (11/24/24 17:12) Admit (11/24/24 17:49) Urinalysis (11/24/24 18:00) * Gi Dvh Screen Making Supervisor (11/24/24 18:03) Pantoprazole (Protonix) (11/25/24 10:00) Pantoprazole (Protonix) (11/24/24 18:15) Hydrocodone-Acet 5/325mg Tab (Cyclone 5/32 (11/24/24 18:15) Temazepam (Restoril) (11/24/24 18:15) Ondansetron Hcl (Zofran) (11/24/24 18:15) Complete Blood Count (11/25/24 04:00) Comprehensive Metabolic Panel (11/25/24 04:00) Condition: Stable (11/24/24 18:03) Acetaminophen Tablet (Tylenol Tablet) (11/24/24 18:15) Clear Liq Diet (11/24/24 Dinner) Bedrest With Bathroom Privileg (11/24/24 18:03) Morphine Sulfate Injection (11/24/24 18:15) Vital Signs Date Time Temp Pulse Resp B/P (MAP) Pulse Ox O2 Delivery O2 Flow Rate FiO2 11/24/24 15:38 65 19 125/79 11/24/24 13:25 98.1 85 16 143/78 95 98.1 Laboratory Tests Test 11/24/24 14:04 White Blood Count 9.3 10^3/uL (4.4-10.8) Medications Medications Dose Ordered Sig/Yg Route Start Time Stop Time Status Last Admin Dose Admin Morphine Sulfate 4 mg ONCE ONCE IV 11/24/24 13:45 11/24/24 13:46 DC 11/24/24 15:38 4 MG Ondansetron HCl 4 mg ONCE ONCE IV 11/24/24 13:45 11/24/24 13:46 DC 11/24/24 15:38 4 MG Sodium Chloride 1,000 ml @ 1,000 mls/hr Q1H ONCE IV 11/24/24 13:45 11/24/24 14:44 DC 11/24/24 15:36 1,000 MLS/HR Assessment/Plan Assessment/Plan Assessment Acute abdominal pain Right large inguinal hernia, reducible Liver cirrhosis ? Gastritis Plan Admit the patient to [facility] to the hospitalist Clear liquid diet GI consult Pain management Continue treatment per orders. Plan discussed with: Patient My Orders Orders - TRUDY GARCIA Procedure Category Date Status Time Admit ADMIT 11/24/24 Transmitted 17:49 * Gi Dvh Screen Making Supervisor CONS 11/24/24 Verified 18:03 Pantoprazole PHA 11/25/24 Verified (Protonix) 10:00 Pantoprazole PHA 11/24/24 Verified (Protonix) 18:15 Hydrocodone-Acet PHA 11/24/24 Verified 5/325mg Tab (Cyclone 18:15 Temazepam (Restoril) PHA 11/24/24 Verified 18:15 Ondansetron Hcl PHA 11/24/24 Verified (Zofran) 18:15 Complete Blood Count LAB 11/25/24 Verified 04:00 Comprehensive LAB 11/25/24 Verified Metabolic Panel 04:00 Condition: Stable DALE 11/24/24 Verified 18:03 Acetaminophen Tablet PHA 11/24/24 Verified (Tylenol Tablet) 18:15 Clear Liq Diet DIET 11/24/24 Verified Dinner Bedrest With Bathroom DALE 11/24/24 Verified Privileg 18:03 Morphine Sulfate PHA 11/24/24 Verified Injection 18:15 Date of Service: Nov 24, 2024 Billing Provider: TRUDY GARCIA Common Visit Codes: [id number] INP/OBS CARE (MOD) TRUDY GARCIA Nov 24, 2024 18:10
[2024-11-24] MEDS ORDERED: ONDANSETRON HCL 4 MG/2 ML VIAL IV PRN (18:15)
[2024-11-24] MEDS ORDERED: MORPHINE SULFATE INJ 2 MG/ml SYRG IV PRN (18:15)
[2024-11-24] MEDS ORDERED: TEMAZEPAM 15 MG CAP PO PRN (18:15)
[2024-11-24 18:32] LABS: Urine Protein, UAD TRACE (Negative)
[2024-11-24] MEDS: PANTOPRAZOLE 40 MG/10 ML VIAL INJ IV ONE (18:36)
[2024-11-24 21:35] VITALS: BP 112/77; PULSE 50; RESP 18; TEMP 96.9; O2SAT 0; O2SAT 96
[2024-11-24] MEDS: HYDROcodone-ACET 5/325MG TAB PO PRN (22:58)
[2024-11-25 01:00] VITALS: BP_SYST 111; BP_SYST 152; BP_DIAS 70; BP_DIAS 89; PULSE 56; RESP 18; TEMP 98; O2SAT 97
[2024-11-25 05:00] VITALS: BP 112/70; PULSE 87; RESP 18; TEMP 97.8; O2SAT 98
[2024-11-25 06:35] LABS: Hematocrit 43.8 % (41.0-53.0); Hemoglobin 15.4 g/dL (13.5-17.5); Mean Corpuscular Hemoglobin 30.4 pg (28.0-32.0); Mean Corpuscular Volume 86.3 fL (80.0-100.0); Nucleated Red Blood Cells % 0.2 %
[2024-11-25 06:59] LABS: Alanine Aminotransferase 20 U/L (7-40); Albumin 3.7 g/dL (3.2-4.8); Alkaline Phosphatase 94 U/L (46-116); Anion Gap 9 (5-15); BUN/Creatinine Ratio 15.9 (10.0-20.0); Blood Urea Nitrogen 10 mg/dL (9-23); Carbon Dioxide 27 mmol/L (20-31); Chloride 104 mmol/L (98-107); Glucose 86 mg/dL (74-106); Potassium 4.0 mmol/L (3.5-5.1); Sodium 140 mmol/L (136-145); Total Protein 5.9 g/dL (5.7-8.2)
[2024-11-25 07:03] LABS: Bilirubin, Total 1.4 mg/dL (0.2-1.0); Calcium 8.6 mg/dL (8.7-10.4)
[2024-11-25 09:00] VITALS: BP 110/74; PULSE 51; RESP 18; TEMP 97.2; O2SAT 97
[2024-11-25] MEDS: PANTOPRAZOLE 40 MG/10 ML VIAL INJ IV SCH (09:01)
[2024-11-25] MEDS: ACETAMINOPHEN 325 MG TAB PO PRN (09:02)
--- NOTE | 2024-11-25 11:53 | DVHPN2 ---
Objective Vitals Vital Signs Date Time Temp Pulse Resp B/P (MAP) Pulse Ox O2 Delivery O2 Flow Rate FiO2 11/25/24 09:00 97.2 51 18 110/74 (86) 97 97.2 11/25/24 08:05 Room Air* 0 21 Intake/Output Intake and Output 11/25/24 06:59 Intake Total 400 ml Balance 400 ml Intake Oral 400 ml # Voids 1 Medications Current Medications Medications Dose Ordered Sig/Yg Route Start Time Stop Time Status Last Admin Dose Admin Pantoprazole Sodium 40 mg DAILY IV 11/25/24 10:00 11/25/24 09:01 40 MG Acetaminophen/ Hydrocodone Bitart 1 tab Q4HP PRN PO 11/24/24 18:15 11/24/24 22:58 1 TAB Temazepam 15 mg QHSP PRN PO 11/24/24 18:15 Ondansetron HCl 4 mg Q4HP PRN IV 11/24/24 18:15 Acetaminophen 650 mg Q6HP PRN PO 11/24/24 18:15 11/25/24 09:02 650 MG Morphine Sulfate 2 mg Q6HPRN PRN IV 11/24/24 18:15 Laboratory Results Laboratory Tests 11/25/24 05:19 Chemistry Test 11/24/24 14:04 11/25/24 05:19 Calcium Level 8.9 mg/dL (8.7-10.4) 8.6 mg/dL (8.7-10.4) L Albumin 3.7 g/dL (3.2-4.8) Total Protein 5.9 g/dL (5.7-8.2) LFT Test 11/25/24 05:19 Alanine Aminotransferase (ALT) 20 U/L (7-40) Alkaline Phosphatase 94 U/L (46-116) Aspartate Amino Transferase (AST) 18 U/L (13-40) Total Bilirubin 1.4 mg/dL (0.2-1.0) H Urinalysis Test 11/24/24 18:00 Urine Color Yellow (Yellow) Urine Clarity Clear (Clear) Urine pH 6.0 (5.0-9.0) Urine Specific [place] > 1.050 (1.001-1.035) Urine Protein Trace (Negative) H Urine Ketones Negative (Negative) Urine Blood Negative /uL (Negative) Urine Nitrite Negative (Negative) Urine Bilirubin Negative (Negative) Urine Urobilinogen Normal mg/dL (Negative) Urine Leukocyte Esterase Negative /uL (Negative) Urine RBC <1 /hpf (0 - 3) Urine Microscopic WBC 1 /HPF (0-3) Urine Squamous Epithelial Cells Few /hpf (<5) Urine Bacteria None seen /hpf (None Seen) Urine Glucose Normal mg/dL (Normal) RHIANNA BELTRÁN MD Nov 25, 2024 11:53
--- NOTE | 2024-11-25 11:55 | DVHPN2 ---
Progress Note - Surgical Date Seen: Nov 25, 2024 Post op day Post op day: 0 Subjective Patient reports: Feels better (Patient is feeling better with the abdominal pain complaints, tolerating diet) Review of Systems: Deferred Objective Vital signs Vital Sign Date Time Temp Pulse Resp B/P (MAP) Pulse Ox O2 Delivery O2 Flow Rate FiO2 11/25/24 09:00 97.2 51 18 110/74 (86) 97 97.2 11/25/24 08:05 Room Air* 0 21 Total Intake and Output 11/24/24 11/24/24 11/25/24 15:00 23:00 07:00 Intake Total 400 ml Balance 400 ml Medications Current Medications Medications Dose Ordered Sig/Yg Route Start Time Stop Time Status Last Admin Dose Admin Pantoprazole Sodium 40 mg DAILY IV 11/25/24 10:00 11/25/24 09:01 40 MG Acetaminophen/ Hydrocodone Bitart 1 tab Q4HP PRN PO 11/24/24 18:15 11/24/24 22:58 1 TAB Temazepam 15 mg QHSP PRN PO 11/24/24 18:15 Ondansetron HCl 4 mg Q4HP PRN IV 11/24/24 18:15 Acetaminophen 650 mg Q6HP PRN PO 11/24/24 18:15 11/25/24 09:02 650 MG Morphine Sulfate 2 mg Q6HPRN PRN IV 11/24/24 18:15 Laboratory Laboratory Tests 11/25/24 05:19 Test 11/25/24 05:19 Range/Units Serum Glucose 86 74-106 mg/dL Examination: GENERAL:Normal, ABDOMEN:Abnormal (Nondistended, soft, depressible, right-sided inguinal hernia currently reduced, defect very large (mouth of defect is approximately 3.5 x 5.5 cm), nontender) Problem List/Assessment/Plan Assessment and Plan is a 44-year-old male who presented to the ED with upper abdominal pain with occasional nausea and vomiting; he has had these symptoms in the past and states that the epigastric pain usually lasts 2-3 hours before self resolution. I was consulted due to large right-sided inguinal hernia. Hernia defect is 3.[address] was reviewed and I saw small bowel loops within the hernia sac in the scrotum, bowel wall lights up which means that it has adequate perfusion. I was able to reduce the hernia easily at bedside and patient states he is able to reduce the hernia home. At this point there is no indication for emergent hernia repair. He has an appointment on December 07, 2024 for hernia surgery with Dr. Starkey. Since patient is going to get admitted for possible EGD, I will let Dr. Starkey no that the patient is here in case he has other plans with the patient. Interval: Patient does not need emergent hernia repair at this moment, Dr. Starkey was notified about the patient being here. He will proceed with the scheduled hernia repair surgery on December 07, 2024. I also verified with the clinic staff, surgery packet was already sent to the patient. -patient is cleared for discharge from surgical standpoint -instructed the patient to refrain from heavy lifting until surgery, also wearing tight feeling on the were we will help with keeping the hernia in place, and he might benefit from using a hernia belt. -I will sign off, please call with any questions or concerns Plan discussed with Plan discussed with: Patient Visit Coding Surgery Date of Service if different f: Nov 25, 2024 Billing Provider: VALERIA ABDALLA MD Surgery Visit Codes: [id number] INP/OBS CARE(HIGH) VALERIA ABDALLA MD Nov 25, 2024 11:55
[2024-11-25 13:00] VITALS: BP 122/76; PULSE 55; RESP 18; TEMP 98.2; O2SAT 97
[2024-11-25 17:00] VITALS: BP 126/76; PULSE 58; RESP 18; TEMP 98.4; O2SAT 97
--- NOTE | 2024-11-25 17:10 | DVHDS2 ---
Discharge Summary Date of Admission Nov 24, 2024 at 17:49 Date of Discharge: Nov 25, 2024 Admitting Diagnosis Acute abdominal pain Right large inguinal hernia, reducible Liver cirrhosis ? Gastritis Labs/Diagnostic Data: Laboratory Results Test 11/25/24 05:19 11/24/24 18:10 11/24/24 18:00 White Blood Count 7.8 10^3/uL (4.4-10.8) Red Blood Count 5.08 10^6/uL (4.5-5.90) Hemoglobin 15.4 g/dL (13.5-17.5) Hematocrit 43.8 % (41.0-53.0) Mean Corpuscular Volume 86.3 fL (80.0-100.0) Mean Corpuscular Hemoglobin 30.4 pg (28.0-32.0) Mean Corpuscular Hemoglobin Concent 35.2 g/dL (32.0-36.0) Red Cell Distribution Width 13.4 % (11.8-14.3) Platelet Count 126 10^3/uL (140-450) Mean Platelet Volume 9.6 fL (6.9-10.8) Neutrophils (%) (Auto) 52.9 % (37.0-80.0) Lymphocytes (%) (Auto) 33.6 % (10.0-50.0) Monocytes (%) (Auto) 8.2 % (0.0-12.0) Eosinophils (%) (Auto) 4.9 % (0.0-7.0) Basophils (%) (Auto) 0.4 % (0.0-2.0) Neutrophils # (Auto) 4.1 10 ^3/uL (1.6-8.6) Lymphocytes # (Auto) 2.6 10 ^3/uL (0.4-5.4) Monocytes # (Auto) 0.6 10 ^3/uL (0-1.3) Eosinophils # (Auto) 0.4 10 ^3/uL (0-0.8) Basophils # (Auto) 0 10 ^3/uL (0-0.2) Nucleated Red Blood Cells 0.2 % Sodium Level 140 mmol/L (136-145) Potassium Level 4.0 mmol/L (3.5-5.1) Chloride Level 104 mmol/L (98-107) Carbon Dioxide Level 27 mmol/L (20-31) Anion Gap 9 (5-15) Blood Urea Nitrogen 10 mg/dL (9-23) Creatinine 0.63 mg/dL (0.700-1.30) Glomerular Filtration Rate Calc 120 mL/min (>90) BUN/Creatinine Ratio 15.9 (10.0-20.0) Serum Glucose 86 mg/dL (74-106) Calcium Level 8.6 mg/dL (8.7-10.4) Total Bilirubin 1.4 mg/dL (0.2-1.0) Aspartate Amino Transferase (AST) 18 U/L (13-40) Alanine Aminotransferase (ALT) 20 U/L (7-40) Alkaline Phosphatase 94 U/L (46-116) Total Protein 5.9 g/dL (5.7-8.2) Albumin 3.7 g/dL (3.2-4.8) Lactic Acid Level 1.6 mmol/L (0.4-2.0) Urine Color Yellow (Yellow) Urine Clarity Clear (Clear) Urine pH 6.0 (5.0-9.0) Urine Specific [place] > 1.050 (1.001-1.035) Urine Protein Trace (Negative) Urine Ketones Negative (Negative) Urine Blood Negative /uL (Negative) Urine Nitrite Negative (Negative) Urine Bilirubin Negative (Negative) Urine Urobilinogen Normal mg/dL (Negative) Urine Leukocyte Esterase Negative /uL (Negative) Urine RBC <1 /hpf (0 - 3) Urine Microscopic WBC 1 /HPF (0-3) Urine Squamous Epithelial Cells Few /hpf (<5) Urine Bacteria None seen /hpf (None Seen) Urine Glucose Normal mg/dL (Normal) Other Laboratory Tests 11/25/24 05:19 Brief Hx & Hospital Course: This is a 44 years old male come into emergency department because severe abdominal pain. Patient had one day history epigastric abdominal pain with associated nausea and vomiting. CT abdomen pelvis showed: Large right inguinal hernia containing small bowel loops measuring 18 x 8.3 cm. There is fluid within the hernia. There is also mild stranding of the fat. Correlate for incarceration / strangulation. Recommend surgical consultation for further evaluation. Bowel wall edema and thickening of the terminal ileum which could be secondary to inflammatory bowel disease, enteritis. Fecal like contents within the small bowel which can be seen with ileus, hypomotility, bowel obstruction.Cirrhotic morphology liver, splenomegaly. Moderate volume stool within the colon. He has an upcoming right inguinal hernia surgery schedule on 12/07/2024. The patient was admitted. Pain was controlled with [place] in morphine. Surgeon see the patient and recommend outpatient surgery per schedule. No further intervention in the hospital. His pain is controlled. So I am going to discharge this patient home. Advised the patient to follow up with primary care physician 1-2 weeks. Follow up with surgeon per schedule for surgery per schedule. Activity as tolerated. Diet per home diet. Physical exam: HEENT: Normocephalic atraumatic pupils equal react to light and accommodation. Extraocular muscles intact, conjunctiva pink, oropharynx moist, no thrush, no exudate. Lymphatic: No lymphadenopathy Cardiovascular exam: S1, S2 was heard. No murmurs, rubs, gallops Lung: Clear on auscultation bilaterally, no wheeze, rale, rhonchi. GI: Abdominal soft, nondistended, nontenderness, positive bowel sounds. Extremity: No crepitus, cyanosis, edema. Pedal pulses present bilateral. Full range of motion. Skin: Normal turgor, no rash. Psych: Alert, oriented x3. Neurology: No focal deficits, cranial nerve II to XII grossly intact. This medical document was created using an electronic medical record system with [employer] direct computerized dictation system. Although this document has been carefully reviewed, there may still be some phonetic and typographical errors. These areas are purely typographical due to imperfections of the software programs, and do not reflect any compromise in the patient's medical care. Condition at Discharge: Stable Final Diagnosis/Problems List Acute abdominal pain Right large inguinal hernia, reducible Liver cirrhosis ? Gastritis Discharge Disposition: Home Discharge Instruct/Medications Diet: Regular Activity: No Restrictions, As Tolerated Follow Up/Referral: pcp 1-2 weeks Surgeon per ivory Medications: None No Active Prescriptions or Reported Meds Discharge Statement: "Patient was advised to return to the ER or call 911 if any headaches, dizziness, shortness of breath, chest pain, abdominal pain, bleeding, fevers, or worsening of medical condition. Patient was counseled about treatment plan, medications, possible side effects, patientverbalized understanding. All questions were answered to the best of my ability. This discharge took greater then 30 minutes in planning, reviewing documentation, counseling the patient, and discussing with other team members." ASSESSMENT ASSESSMENT Assessment abdominal pain Date of Service: Nov 25, 2024 Billing Provider: RHIANNA BELTRÁN MD Common Visit Codes: [id number] DISCH DAY >30min RHIANNA BELTRÁN MD Nov 25, 2024 17:09
[2024-11-25 18:27] VITALS: TEMP 36.9
== END 2024-11-25 18:40 | disposition home or self-care (01) | DRG 395 ==
LOC: ER 13:28 → OVERFLOW 17:49 → CENTRAL 21:35
PROVIDERS: ADMIT Internal Medicine; ATTEND Internal Medicine
DX: K40.90 Unilateral inguinal hernia, without obstruction or gangrene, not specified as recurrent (principal); K74.60 Unspecified cirrhosis of liver; K29.70 Gastritis, unspecified, without bleeding; K21.9 Gastro-esophageal reflux disease without esophagitis; Z87.891 Personal history of nicotine dependence; Z90.89 Acquired absence of other organs
CPT/HCPCS: 36415; 74177; 80048; 80053; 81001; 83605; 85025; 96361; 96374; 96375; 99291; G0378; J2405; J2470

== ENCOUNTER 2024-12-07 06:12 | Day surgery (SDC) | payer OTHER ==
--- NOTE | 2024-11-25 17:27 | DVHINCON2 ---
Date of service: Nov 25, 2024 Referring Physician Caden History of Present Illness The patient is a 44-year-old male with a history of or inguinal hernia. Patient was admitted with abdominal pain nausea and vomiting. He has a large reducible inguinal hernia. Patient states that he has had it for several months. Patient was admitted for evaluation for possible endoscopy however he is currently about to be discharged. He denies any hematemesis. He denies any significant aspirin or NSAID use. Patient has surgery pending on December 07. He has a prior history of cholecystectomy. He denies any family history of gastrointestinal diseases or malignancies. Past Medical History As above Past Surgical History Cholecystectomy Family History: Diabetes mellitus G8 MOTHER Family History No GI diseases or malignancies Social History Social alcohol no tobacco or drug use Allergies: Coded Allergies: No Known Drug Allergy (Verified Allergy, Unknown, 11/16/24) Review of Systems Review of systems negative other than HPI Physical Exam General: Well-developed well-nourished HEENT: NC/AT EOMI PERRLA O/P clear, no JVD or cervical lymphadenopathy, no scleral icterus Heart: Regular rate and rhythm, no murmurs rubs or gallops Lungs: Clear to auscultation bilaterally, no wheezes rales or rhonchi Abdomen: Soft, nontender, nondistended, no organomegaly, normoactive bowel sounds Extremity: No clubbing cyanosis or edema, no rashes or bruises Neuro: Cranial nerves 2-12 grossly intact, moves all four extremities, no asterixis Assessment 1. Inguinal hernia 2. Abdominal pain 3. Nausea and vomiting Problems(with codes): (1) Abdominal pain (2) Hepatosplenomegaly (3) Intractable abdominal pain (4) Incarcerated hernia (5) Reducible right inguinal hernia Plan/Recommendation 1. Follow up for liver disease, likely fatty liver and possible mass 2. Outpatient follow up with surgery 3. Patient will be discharged home Plan discussed with: Patient, Spouse GONZÁLEZ OCONNELL MD Nov 25, 2024 17:27
[2024-12-06 12:02] LABS: Hematocrit 50.3 % (41.0-53.0); Hemoglobin 17.4 g/dL (13.5-17.5); Mean Corpuscular Hemoglobin 30.2 pg (28.0-32.0); Mean Corpuscular Volume 87.6 fL (80.0-100.0); Nucleated Red Blood Cells % 0.0 %
[2024-12-06 12:03] LABS: Urine Protein, UAD Negative (Negative)
[2024-12-06 12:17] LABS: INR 1.05 (0.9-1.15); Partial Thromboplastin Time 29.6 SEC (24.5-34.5); Prothrombin Time 11.1 sec (9.3-11.8)
[2024-12-06 12:35] LABS: Alanine Aminotransferase 38 U/L (7-40); Albumin 4.3 g/dL (3.2-4.8); Alkaline Phosphatase 114 U/L (46-116); Anion Gap 8 (5-15); BUN/Creatinine Ratio 14.9 (10.0-20.0); Bilirubin, Total 1.1 mg/dL (0.2-1.0); Blood Urea Nitrogen 13 mg/dL (9-23); Calcium 9.0 mg/dL (8.7-10.4); Carbon Dioxide 30 mmol/L (20-31); Chloride 103 mmol/L (98-107); Glucose 96 mg/dL (74-106); Potassium 4.3 mmol/L (3.5-5.1); Sodium 141 mmol/L (136-145); Total Protein 7.2 g/dL (5.7-8.2)
[~2024-12-07] VITALS: Ht 182.9 cm; Wt 113.4 kg
[2024-12-07] MEDS ORDERED: ROCURONIUM 10MG/ML 10ML VIAL IV ONE (06:28)
[2024-12-07] MEDS ORDERED: SUCCINYLCHOLINE CHLORIDE 20 MG/ML 10ML VIAL IV ONE (06:28)
[2024-12-07] MEDS ORDERED: MORPHINE SULFATE 4 MG/ML SYR/VIAL IV PRN (06:45)
[2024-12-07] MEDS ORDERED: KETOROLAC TROMETH 30 MG/ML 1ML VIAL IV ONE (06:45)
[2024-12-07] MEDS ORDERED: MORPHINE SULFATE INJ 2 MG/ml SYRG IV PRN (06:45)
[2024-12-07] MEDS ORDERED: HYDROmorphone HCL 2 MG/ML VL/or syr IV PRN (06:45)
[2024-12-07] MEDS ORDERED: METOCLOPRAMIDE HCL 5MG/ml INJ 2ml VIAL IV PRN (06:45)
[2024-12-07] MEDS ORDERED: KETAMINE 50mg/ML 10ml Vial 10 ML ONE (07:03)
[2024-12-07] MEDS ORDERED: MIDAZOLAM HCL 2MG/2ML 2ml VIAL (1mg/ml) ONE (07:03)
[2024-12-07] MEDS ORDERED: HYDROmorphone HCL 2 MG/ML VL/or syr ONE (07:03)
[2024-12-07] MEDS ORDERED: fentaNYL CITRATE 100 MCG/2 ML VL ONE (07:03)
[2024-12-07] MEDS ORDERED: PROPOFOL 10 MG/ML 20 ML IV ONE (07:04)
[2024-12-07] MEDS ORDERED: LIDOCAINE 1% INJ PF 5ML AMP ONE (07:04)
[2024-12-07] MEDS ORDERED: ONDANSETRON HCL 4 MG/2 ML VIAL ONE (07:04)
[2024-12-07] MEDS ORDERED: LIDOCAINE HCL 2% TOP JELLY 5ML TOP ONE (07:04)
[2024-12-07] MEDS ORDERED: SODIUM CHLORIDE LOCK 10 ML ONE (07:04)
[2024-12-07] MEDS: BUPIVACAINE 0.5% P/F INJ 10 ML VIAL ONE (07:54)
[2024-12-07] MEDS: ceFAZolin 2 GM/D5W50ml 50 ML IV ONE (08:42)
[2024-12-07 08:50] VITALS: PULSE 77; RESP 19; TEMP 97.7; O2SAT 100
[2024-12-07 09:00] VITALS: PULSE 68; RESP 19; O2SAT 100
[2024-12-07] MEDS ORDERED: ACETAMINOPHEN IV 100 ML IV ONE (09:00)
[2024-12-07] MEDS: HYDROmorphone HCL 2 MG/ML VL/or syr IV PRN (09:20)
[2024-12-07] MEDS: ACETAMINOPHEN IV 1000 MG/100ML (10MG/ML) IV ONE (09:23)
[2024-12-07 09:50] VITALS: BP 116/72; PULSE 66; RESP 13; O2SAT 100
--- NOTE | 2024-12-07 09:52 | DVHOP ---
DATE OF SURGERY: 12/07/2024 PREOPERATIVE DIAGNOSIS: Giant right inguinal scrotal hernia. 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 * Testicular atrophy. PROCEDURES PERFORMED: * Repair of hernia. * Reduction of incarcerated bowel. SURGEON: Valentin Starkey MD DESCRIPTION OF PROCEDURE: The patient underwent general endotracheal anesthesia by Dr. Alcaraz, following which his abdomen, scrotum and penis were prepped and draped. 0.25% Marcaine and 0.5% Xylocaine were infiltrated into the proposed incision site over this huge bulge that was visible and palpable in the right groin extending into the right scrotal compartment. Following division of much adipose tissue, the patient being morbidly obese, the dissection was carried down on to the fibers of the external oblique aponeurosis, which was opened in the direction of its fibers. The ilioinguinal nerve was identified, reflected laterally and protected. The cord structures were encircled with a Barstow drain. The hernia was an indirect inguinal hernia. The sac was opened revealing a small amount of fluid, which was non-sanguinous. Numerous loops of small bowel were present within the hernia sac and descending into the scrotum. These were reduced into the peritoneal cavity through the neck of the hernia sac. At this point, the cord structures were from the peritoneal ____. There was compression of the testicular vessels and the testicle was delivered into the wound and inspected. It appeared atrophic, pale, and chronically ischemic. The testicle was then returned into the normal anatomical scrotal position. The hernia sac was swept free of cremasteric fibers. It was digitally explored during the reduction of the hernia so as to ensure non-compromise of the intra-abdominal contents. The hernia sac was excised and submitted to histopathologic examination and the peritoneum remaining at the internal inguinal ring was twisted on itself, doubly ligated, and allowed to retract under the fibers of the internal oblique aponeurosis. Following reduction and repair of the indirect hernia, the floor of the hernia was repaired using 0 nonabsorbable sutures through the conjoint tendon and the reflecting portion of Poupart's ligament. The wound was subsequently irrigated and hemostasis was meticulously accomplished. The testicle was again palpated in its normal anatomical position in the scrotal compartment. The subcutaneous tissues and skin were approximated using Monocryl, Dermabond glue, and Steri-Strips. The patient remained stable throughout the procedure and left the operating room following an accurate needle and sponge count. The was not in the waiting room and was called at [phone] and thoroughly informed of the operative findings. I explained to her that the testicle had been compromised chronically and she said that the patient was having an awful lot of pain in his hernia for many months. The patient's was instructed to allow him to shower after about 4 days after the operation and then bring him for routine surgical followup in about 2 weeks. Call me with any problems. MD JUNG Simpson/SIMA/WAYNE TID: [id number] RECEIPT: [id number]
[2024-12-07] MEDS: LIDOCAINE W/ EPINEPHRINE 1% 20ML VIAL ONE (09:55)
== END 2024-12-07 10:10 | disposition home or self-care (01) ==
LOC: SUR 06:12
PROVIDERS: ATTEND Surgery
DX: K40.30 Unilateral inguinal hernia, with obstruction, without gangrene, not specified as recurrent (principal); N50.0 Atrophy of testis; F17.210 Nicotine dependence, cigarettes, uncomplicated; E66.9 Obesity, unspecified; Z68.34 Body mass index [BMI] 34.0-34.9, adult; Z90.49 Acquired absence of other specified parts of digestive tract; Z98.890 Other specified postprocedural states; Z83.3 Family history of diabetes mellitus
CPT/HCPCS: 36415; 49507; 80053; 81001; 85025; 85610; 85730; 86850; 86900; 86901; 88302; J0330; J0690; J1100; J1171; J2250; J2405; J2704; J3010; J3490; J0131

== ENCOUNTER 2025-01-03 10:37 | Inpatient (IN) | payer BC, OTHER ==
[2025-01-03 10:43] VITALS: BP 123/76; PULSE 79; RESP 18; TEMP 97.8; TEMP 98; O2SAT 100; O2SAT 97
[2025-01-03 11:54] VITALS: PULSE 79; RESP 18; O2SAT 97
--- NOTE | 2025-01-03 12:06 | DVHINCON2 ---
Date of service: Jan 03, 2025 Reason for Consultation scrotal swelling and pain History of Present Illness HPI 44 year old male status post inguinal hernia about 4 weeks ago. Patient states after last follow up appoint in general surgery clinic the swelling progressively became worse and this weekend the pain was very severe and stated he rrran out of pain medication. On follow up appointment in surgery clinic today patient has scrotal swelling with what appears to be a hematoma. Patient is very tender to palpation of the scrotum. Home Meds No Active Prescriptions or Reported Meds Past Medical History Cardiac: No pertinent Hx Pulmonary: No pertinent Hx Central Nervous System: No pertinent Hx GI: No pertinent Hx Hemotology/Oncology: No pertinent Hx Hepatobiliary: No pertinent Hx Psychiatric: No pertinent Hx Musculoskeletal: No pertinent Hx Rheumotologic: No pertinent Hx Infectious Disease: No peritnent Hx ENT: No pertinent Hx Renal/: No pertinent Hx Endocrine: No pertinent Hx Past Surgical History: Hernia repair Patient Family History: Diabetes mellitus G8 MOTHER Smoker: No Hx (Negative) Alocohol: None Drugs: None Lives with: With family Review of Systems Constitutional: No symptom reported Ears, Nose, & Throat: No symptom reported Eyes: No symptom reported Pulmonary/Respiratory: No symptom reported Cardiovascular: No symptom reported Gastrointestinal: No symptom reported Genitourinary: Pain, Other (scrotal swelling ) Musculoskeletal: No symptom reported Skin: No symptom reported Psychiatric: No symptom reported Endocrine: No symptom reported Hemotologic/Lymphatic: No symptom reported H&P Exam General Appeara: Well developed, Well nourished Head Exam: Normal inspection Neck Exam: Normal inspection Abdominal Exam: Normal bowel sounds Male Genital Exam: Other (scrotal swelling / hematoma ) Neuro/Mental St: Alert, Oriented Appearance: Appropriate appearance Eye contact/ Speech: Cooperative Thoughts/Psych: Normal thought pattern Assessment/Plan Plan patient complaint of scrotal pain and firmness, which progressively got worse after last follow up appointment this weekend the pain became severe. patient waited for follow up appointment for evaluation of firmness to scrotal area he thought the hernia reoccurred again. scrotum tender to palpation and very firm. appears to be a hematoma which needs drainage, patient was also examined by Dr. Starkey and agrees with plan. Plan: drainage of scrotal hematoma tomorrow am Plan discussed with: Patient Visit Coding Surgery Date of Service if different f: Jan 03, 2025 Billing Provider: JAZMYN STARKEY MD Surgery Visit Codes: 17103 - INP CONSULT <80 MIN ENIO PHILLIPS NP Jan 03, 2025 12:06
[2025-01-03 13:00] VITALS: BP 123/76; PULSE 79; RESP 18; TEMP 98; O2SAT 97
[2025-01-03] MEDS: HYDROmorphone HCL 2 MG/ML VL/or syr IV PRN ×3 (14:16→20:25)
--- NOTE | 2025-01-03 14:40 | DVH ---
SCROTAL ULTRASOUND REASON FOR EXAM: scrotal swelling. Right inguinal swelling and pain. Right inguinal hernia repair 12/07/2024. COMPARISON: None TECHNIQUE: Real-time sector scans and duplex color flow Doppler imaging of the scrotal contents was performed. FINDINGS: The right testicle measures 3.5 x 2.6 x 2.6 cm. The left testicle measures 3.6 x 2.3 x 2.4 cm. No blood flow is identified in the right testis. There is mild right testicular microlithiasis. The right epididymis is not visualized. Normal arterial and venous flow is identified within the left testis. The left epididymis is unremarkable. There is a very large and complex hydrocele in the right scrotum with fluid and septations extending up the inguinal canal to the abdomen. There is trace left hydrocele. No varicocele is identified. IMPRESSION: No blood flow is identified in the right testis. Very large, complex hydrocele in the right scrotum extending up the inguinal canal to the abdomen. Findings discussed with Dr. CORDOVA's biomedical scientist Martha Mazariegos at 01/03/2025 02:10 PM, as the physician was gone for the day and the office preferred to relay the findings to him rather than connect us. A callback number was left with the MA and in prior voicemails. #CRITICAL# TTE WALTERS
[2025-01-03] MEDS ORDERED: KETAMINE 50mg/ML 1ml syringe ONE (14:53)
[2025-01-03] MEDS ORDERED: MEPERIDINE HCL (25 MG/ML) 1ML VIAL ONE (14:53)
[2025-01-03] MEDS ORDERED: ROCURONIUM 10MG/ML 10ML VIAL IV ONE (14:54)
[2025-01-03] MEDS ORDERED: LIDOCAINE 1% INJ PF 5ML AMP ONE (14:54)
[2025-01-03] MEDS ORDERED: SODIUM CHLORIDE LOCK 10 ML ONE (14:54)
[2025-01-03] MEDS ORDERED: MIDAZOLAM HCL 2MG/2ML 2ml VIAL (1mg/ml) ONE (14:54)
[2025-01-03] MEDS ORDERED: PROPOFOL 10 MG/ML 20 ML IV ONE (14:54)
[2025-01-03] MEDS ORDERED: fentaNYL CITRATE 100 MCG/2 ML VL ONE (14:54)
[2025-01-03] MEDS ORDERED: LIDOCAINE HCL 2% TOP JELLY 5ML TOP ONE (14:54)
--- NOTE | 2025-01-03 14:57 | DVHINCON2 ---
Date of service: Jan 03, 2025 Family History: Diabetes mellitus G8 MOTHER Allergies: Coded Allergies: No Known Drug Allergy (Verified Allergy, Unknown, 11/16/24) Home Meds No Active Prescriptions or Reported Meds Current Medications Current Medications Medications (Trade) Dose Ordered Sig/Yg Route PRN Reason Start Time Stop Time Status Last Admin Hydromorphone HCl (Dilaudid Injection) 0.5 mg Q3HPRN PRN IV MODERATE PAIN (4-6 PAIN SCALE) 01/03/25 11:45 01/03/25 14:16 Vital Signs Vital Signs Date Time Temp Pulse Resp B/P (MAP) Pulse Ox O2 Delivery O2 Flow Rate FiO2 01/03/25 14:16 79 18 123/76 01/03/25 10:43 98.0 97 98.0 Assessment PATIENT PRESENTED TO THE OUTPATIENT DEPARTMENT WITH SCROTAL SWELLING WHICH HE STATED "GOT WORSE THIS LAST WEEKEND AND WHEN HE RAN OUT OF PAIN MEDICATION HE CAME TO THE CLINIC. THE HEMATOMA WAS ENCOMPASSING THE INGUINAL AREA AND THE SCROTUM AND DUE TO THE SIZE OF THE HEMATOMA AND PATIENT'S DISCOMFORT WE ADMITTED HIM AN ORDERED A TESTICULAR ULTRASOUND, WHICH WAS REPORTED TO ME SHOWING NO ARTERIAL FLOW TO THE TESTICLE. ALTHOUGH HIS TESTICLE WAS CHRONICALLY ISCHEMIC DURING THE ORIGINAL OPERATION(SEE OP REPORT) DUE TO THE PAIN I WILL EVACUATE THE HEMATOMA EMERGENTLY. OPERATION, RISKS AND COMPLICATIONS EXPLAINED IN DETAIL. Plan discussed with: Patient, Other JAZMYN CORDOVA MD Jan 03, 2025 14:57
[2025-01-03 16:13] VITALS: PULSE 84; RESP 18; O2SAT 96
[2025-01-03] MEDS ORDERED: ACETAMINOPHEN/CODEINE#3 (300/30mg) TAB PO PRN (16:15)
[2025-01-03] MEDS ORDERED: METOCLOPRAMIDE HCL 5MG/ml INJ 2ml VIAL IV PRN (16:30)
[2025-01-03] MEDS ORDERED: MORPHINE SULFATE 4 MG/ML SYR/VIAL IV PRN (16:30)
[2025-01-03] MEDS ORDERED: HYDROmorphone HCL 2 MG/ML VL/or syr IV PRN (16:30)
--- NOTE | 2025-01-03 16:40 | DVHOP ---
DATE OF SURGERY: 01/03/2025 PREOPERATIVE DIAGNOSES: * Right scrotal hematoma. * Right testicular infarction. SURGEON: Valentin Starkey MD DAIRY HAND: Angelo Acevedo NP ANESTHESIA: General endotracheal, Dr. Alcaraz. PROCEDURE: Evacuation of right scrotal hematoma. INDICATIONS FOR PROCEDURE: The patient had a right inguinal hernia repaired approximately four weeks prior to this hospitalization. He developed some swelling during the postoperative period of the first week of postop course. Came to the clinic to be evaluated. Had small amount of swelling. Was instructed to return. He did not return until he "ran out of medications" and came in today with large swelling of the right scrotum. An ultrasound was ordered. Although the right testicle was noted to be ischemic at the time of his original hernia surgery on the right groin, the ultrasound was reported as showing no flow to the right testicle. The patient was taken to the operating room for evacuation of hematoma due to the patient's discomfort. DESCRIPTION OF PROCEDURE: Under general endotracheal anesthesia with the skin prepped and draped, the patient's scrotum was incised along the lateral aspect of the right hemiscrotum. The layers of the skin and dartos fascia were divided with electrocautery and approximately 450 mL of unclotted blood was evacuated. The right scrotal compartment was irrigated with pulse lavage. The testicle appeared ischemic and it was with chronic changes as outlined in the original hernia surgery report four weeks prior to today. The testicle was atrophic. The evacuation resulted in a compartmental decompression. Following lavage, hemostasis was assured and a 10 mm Matt-Perez drain was inserted alongside the spermatic cord into the right hemiscrotum and exteriorized through a separate incision, secured with a Prolene suture. Following assurance of complete hemostasis, the wound was closed using 2-0 chromic suture and 2-0 Monocryl suture, Dermabond glue, and Steri-Strips. The patient remained stable throughout the procedure, left the operating room following an accurate needle and sponge counts. The patient's was thoroughly informed in the waiting area. MD JUNG Simpson/LISSY TID: [id number] RECEIPT: [id number]
[2025-01-03] MEDS ORDERED: ONDANSETRON HCL 4 MG/2 ML VIAL IV PRN (17:00)
[2025-01-03] MEDS ORDERED: ACETAMINOPHEN 325 MG TAB PO PRN (17:00)
--- NOTE | 2025-01-03 17:23 | DVHHP2 ---
History of Present Illness Reason for Visit: Hematoma of right inguinal region History of Present Illness Cornelio Schumacher is a 44-year-old male status post inguinal hernia about 4 weeks ago. Patient states after last follow up appoint in general surgery clinic the swelling progressively became worse and this weekend the pain was very severe and stated he ran out of pain medication. On follow up appointment in surgery clinic today patient has scrotal swelling with what appears to be a hematoma. Patient was taken back to OR today to have the hematoma evacuated and a drain placed. Past Surgical History: Cholecystectomy, Hernia Repair Smoke: <1 pack per day (Vape) ALCOHOL: occassional Drugs: None Lives: with Family Domestic Violence: Neg Review of Systems Constitutional: No: Fever, Chills, Sweats, Weakness, Malaise, Other Eyes: No: Pain, Vision change, Conjunctivae inflammation, Eyelid inflammation, Other, Redness ENT: No: Ear pain, Ear discharge, Nose pain, Nose discharge, Nose congestion, Mouth pain, Mouth swelling, Throat pain, Throat swelling, Other Respiratory: No: Cough, Dry, Shortness of breath, SOB with excertion, Wheezing, Hemoptysis, Pleuritic Pain, Sputum, Wheezing, Other Cardiovascular: No: Chest Pain, Palpitations, Orthopnea, Paroxysmal Noc. Dyspnea, Edema, Lt Headedness, Other Gastrointestinal: No: Nausea, Vomiting, Abdominal Pain, Diarrhea, Constipation, Melena, Hematochezia, Other Genitourinary: No Dysuria, No Frequency, No Incontinence, No Hematuria, No Retention; Other (right testicle pain and swelling) Musculoskeletal: other (right groin pain); No: neck pain, shoulder pain, arm pain, back pain, hand pain, leg pain, foot pain Skin: No: Rash, Lesions, Jaundice, Bruising, Other Neurological: No: Weakness, Numbness, Incoordination, Change in speech, Confusion, Seizures, Other Allergies: Coded Allergies: No Known Drug Allergy (Verified Allergy, Unknown, 11/16/24) Medications Current Medications Medications Dose Ordered Sig/Yg Route Start Time Stop Time Status Last Admin Dose Admin Hydromorphone HCl 0.5 mg Q3HPRN PRN IV 01/03/25 11:45 01/03/25 14:16 0.5 MG Potassium Chloride/Dextrose/ Sod Cl 1,000 ml @ 75 mls/hr [id number] IV 01/03/25 16:15 Hydromorphone HCl 1 mg Q3HPRN PRN IV 01/03/25 16:15 Acetaminophen/ Codeine Phosphate 1 tab Q4HP PRN PO 01/03/25 16:15 Cefazolin Sodium/ Dextrose 50 ml @ 50 mls/hr Q8HR IV 01/03/25 22:00 Hydromorphone HCl 0.5 mg Q10M PRN IV 01/03/25 16:30 01/03/25 17:11 01/03/25 16:46 0.5 MG Morphine Sulfate 2 mg Q4H PRN IV 01/03/25 16:30 01/03/25 20:31 Morphine Sulfate 1 mg Q30M PRN IV 01/03/25 17:30 01/03/25 19:31 Exam Vital Signs Vital Signs Date Time Temp Pulse Resp B/P (MAP) Pulse Ox O2 Delivery O2 Flow Rate FiO2 01/03/25 16:46 77 17 111/64 01/03/25 16:13 Room Air 0 96 01/03/25 16:13 96 01/03/25 10:43 98.0 98.0 General Appearance: Alert, Oriented X3, Cooperative, mild distress HEENT: Atraumatic, PERRLA Respiratory: Clear to auscultation, Normal air movement Cardiovascular: Regular rate, Normal S1, Normal S2, No murmurs Abdominal: Normal bowel sounds, Soft, No tenderness, No hepatospenomegaly Extremities: No clubbing, No cyanosis, No edema, Normal pulses, Other (right groin and right scrotum tenderness) Skin: No rashes, No breakdown, No significant lesion (dressing to right groin, drain in place) Neuro: Normal speech, Strength at 5/5 X4 ext Psych/Mental Status: Mental status NL, Mood NL Labs/Xrays CBC and CMP ordered and pending. SCROTAL ULTRASOUND FINDINGS: The right testicle measures 3.5 x 2.6 x 2.6 cm. The left testicle measures 3.6 x 2.3 x 2.4 cm. No blood flow is identified in the right testis. There is mild right testicular microlithiasis. The right epididymis is not visualized. Normal arterial and venous flow is identified within the left testis. The left epididymis is unremarkable. There is a very large and complex hydrocele in the right scrotum with fluid and septations extending up the inguinal canal to the abdomen. There is trace left hydrocele. No varicocele is identified. IMPRESSION: No blood flow is identified in the right testis. Very large, complex hydrocele in the right scrotum extending up the inguinal canal to the abdomen. SEPSIS Sepsis Screen Physician Orders Hydromorphone Injection (Dilaudid Inject (01/03/25 11:45) Testicular Ultrasound (01/03/25 11:38) Complete Blood Count (01/03/25 14:32) Comprehensive Metabolic Panel (01/03/25 14:32) Prothrombin Time W/ Inr (01/03/25 14:32) Jock Strap Support (01/03/25 16:07) Jason Drain To Closed Suction (01/03/25 16:07) Insert/Manage Urinary Catheter QSHIFT (01/03/25 16:07) Clear Liq Diet (01/03/25 Dinner) Incentive Spirometry Q 1hr (01/03/25 16:07) Oxygen Via Cool Mist Mask (01/03/25 16:07) Call/Page Hospitalist/Atten Fo (01/03/25 16:07) Page Hospitalist For Admission (01/03/25 16:07) D5w/Sod Chl 0.45%/Kcl 20meq (01/03/25 16:15) Hydromorphone Injection (Dilaudid Inject (01/03/25 16:15) Acetaminophen/Codeine Tablet (Tylenol W/ (01/03/25 16:15) Cefazolin 2 Gm/[id number] (Ancef) (01/03/25 22:00) Oxygen By Face Mask (01/03/25 16:18) Shipping Clerk Crating (01/03/25 16:18) Notify Anesth. For Changes: (01/03/25 16:18) Pulse Ox Assessment (01/03/25 16:18) Bear Hugger For Temp <94.5f (01/03/25 16:18) May Have Head Of Bed Up (01/03/25 16:18) Follow Iv With Surgeon Orders (01/03/25 16:18) Discharge To Room Per Criteria (01/03/25 16:18) Hydromorphone Injection (Dilaudid Inject (01/03/25 16:30) Morphine Sulfate Injection (01/03/25 16:30) Morphine Sulfate Injection (01/03/25 17:30) Ketamine 50mg/Ml 1ml Syringe (Ketalar) (01/03/25 14:53) Admit (01/03/25 17:00) Code Status (01/03/25 17:00) Hydrocodone-Acet 5/325mg Tab (Leopold 5/32 (01/03/25 17:00) Ondansetron Hcl (Zofran) (01/03/25 17:00) Docusate Sodium Capsule (Colace Capsule) (01/03/25 17:00) Condition: Serious (01/03/25 17:00) Acetaminophen Tablet (Tylenol Tablet) (01/03/25 17:00) Vital Signs Date Time Temp Pulse Resp B/P (MAP) Pulse Ox O2 Delivery O2 Flow Rate FiO2 01/03/25 16:46 77 17 111/64 01/03/25 16:33 78 15 127/75 01/03/25 16:13 Room Air 0 96 01/03/25 16:13 84 18 96 Room Air 0 01/03/25 14:16 79 18 123/76 01/03/25 11:54 79 18 97 Room Air* 0 21 01/03/25 10:43 98.0 79 18 123/76 (92) 97 98.0 Medications Medications Dose Ordered Sig/Yg Route Start Time Stop Time Status Last Admin Dose Admin Hydromorphone HCl 0.5 mg Q10M PRN IV 01/03/25 16:30 01/03/25 17:11 01/03/25 16:46 0.5 MG Hydromorphone HCl 0.5 mg Q3HPRN PRN IV 01/03/25 11:45 01/03/25 14:16 0.5 MG Assessment/Plan Assessment/Plan Assessment: Hematoma of right inguinal region, Large, complex hydrocele in right scrotum, Possible testicular torsion, Plan: Admit to Med-Surg, S/P evacuation of hematoma and drain placement, Pain management, Mange/Monitor electrolytes and H&H closely Plan discussed with: Patient My Orders Orders - LELE BENNETT Procedure Category Date Status Time Admit ADMIT 01/03/25 Transmitted 17:00 Code Status CODE 01/03/25 Transmitted 17:00 Hydrocodone-Acet PHA 01/03/25 Transmitted 5/325mg Tab (Leopold 17:00 Ondansetron Hcl PHA 01/03/25 Transmitted (Zofran) 17:00 Docusate Sodium PHA 01/03/25 Transmitted Capsule (Colace 17:00 Condition: Serious DALE 01/03/25 Transmitted 17:00 Acetaminophen Tablet PHA 01/03/25 Transmitted (Tylenol Tablet) 17:00 Date of Service: Jan 03, 2025 Billing Provider: LELE BENNETT Common Visit Codes: [id number] INP/OBS CARE (MOD) LELE BENNETT Jan 03, 2025 17:23
[2025-01-03] MEDS: ceFAZolin 2 GM/D5W50ml 50 ML IV ONE (17:24)
[2025-01-03] MEDS: BUPIVACAINE HCL 50 ML ONE (17:24)
[2025-01-03] MEDS: HYDROmorphone HCL 2 MG/ML VL/or syr ONE (17:24)
[2025-01-03] MEDS ORDERED: MORPHINE SULFATE INJ 2 MG/ml SYRG IV PRN (17:30)
[2025-01-03] MEDS: D5W/SOD CHL 0.45%/KCL 20MEQ 1,000 ML IV SCH (17:40)
[2025-01-03 18:55] LABS: Hematocrit 42.3 % (41.0-53.0); Hemoglobin 14.5 g/dL (13.5-17.5); Mean Corpuscular Hemoglobin 29.3 pg (28.0-32.0); Mean Corpuscular Volume 85.7 fL (80.0-100.0); Nucleated Red Blood Cells % 0.1 %
[2025-01-03 19:16] LABS: Alanine Aminotransferase 36 U/L (7-40); Albumin 3.6 g/dL (3.2-4.8); Alkaline Phosphatase 166 U/L (46-116); Anion Gap 9 (5-15); BUN/Creatinine Ratio 20.4 (10.0-20.0); Bilirubin, Total 0.6 mg/dL (0.2-1.0); Blood Urea Nitrogen 11 mg/dL (9-23); Calcium 8.6 mg/dL (8.7-10.4); Carbon Dioxide 28 mmol/L (20-31); Chloride 104 mmol/L (98-107); Glucose 108 mg/dL (74-106); INR 1.06 (0.9-1.15); Potassium 4.5 mmol/L (3.5-5.1); Prothrombin Time 11.2 sec (9.3-11.8); Sodium 141 mmol/L (136-145); Total Protein 6.2 g/dL (5.7-8.2)
[2025-01-03 20:00] VITALS: PULSE 69
[2025-01-03 21:00] VITALS: BP 107/62; PULSE 69; RESP 18; TEMP 98.5; O2SAT 97
[2025-01-03] MEDS: ceFAZolin 2 GM/D5W50ml 50 ML IV SCH (21:16)
[2025-01-04] VITALS (7 sets, daily range): BP systolic 105–123; BP diastolic 64–78; PULSE 60–80; RESP 18; TEMP 98.3–99.3; O2SAT 95–97
[2025-01-04] MEDS: HYDROcodone-ACET 5/325MG TAB PO PRN (06:44)
[2025-01-04 07:12] LABS: Chloride 102 mmol/L (98-107); Potassium 4.1 mmol/L (3.5-5.1); Sodium 138 mmol/L (136-145)
[2025-01-04 07:13] LABS: Anion Gap 8 (5-15); Carbon Dioxide 28 mmol/L (20-31)
[2025-01-04 07:15] LABS: Calcium 8.5 mg/dL (8.7-10.4)
[2025-01-04 07:18] LABS: Hematocrit 40.1 % (41.0-53.0); Hemoglobin 14.1 g/dL (13.5-17.5); Mean Corpuscular Hemoglobin 29.9 pg (28.0-32.0); Mean Corpuscular Volume 85.3 fL (80.0-100.0); Nucleated Red Blood Cells % 0.1 %
[2025-01-04 07:19] LABS: BUN/Creatinine Ratio 11.1 (10.0-20.0); Blood Urea Nitrogen 7 mg/dL (9-23); Glucose 105 mg/dL (74-106)
--- NOTE | 2025-01-04 12:53 | DVHPN2 ---
Reviewed: Care Plan, H&P, Labs, Medications, Previous Orders, Radiology Changes from previous H/P or p: No Changes Eyes: No Pain, No Vision change, No Conjunctivae inflammation, No Eyelid inflammation, No Other, No Redness ENT: No Ear pain, No Ear discharge, No Nose pain, No Nose discharge, No Nose congestion, No Mouth pain, No Mouth swelling, No Throat pain, No Throat swelling, No Other Cardiovascular: No Chest Pain, No Palpitations, No Orthopnea, No Paroxysmal Noc. Dyspnea, No Edema, No Lt Headedness, No Other Respiratory: No Cough, No Dry, No Shortness of breath, No SOB with excertion, No Wheezing, No Hemoptysis, No Pleuritic Pain, No Sputum, No Other Gastrointestinal: No Nausea, No Vomiting, No Abdominal Pain, No Diarrhea, No Constipation, No Melena, No Hematochezia, No Other Genitourinary: No Dysuria, No Frequency, No Incontinence, No Hematuria, No Retention; Other (right testicle pain and swelling) Musculoskeletal: other (right groin pain); No neck pain, No shoulder pain, No arm pain, No back pain, No hand pain, No leg pain, No foot pain Skin: No Rash, No Lesions, No Jaundice, No Bruising, No Other Objective Vitals Vital Signs Date Time Temp Pulse Resp B/P (MAP) Pulse Ox O2 Delivery O2 Flow Rate FiO2 01/04/25 12:03 81 15 107/65 01/04/25 08:55 98.5 96 98.5 01/03/25 20:00 Room Air* 0 21 Intake/Output Intake and Output 01/04/25 07:00 Intake Total 1800 ml Output Total 1655 ml Balance 145 ml Intake Oral 600 ml IV Total 1050 ml Other 150 ml Output Urine Total 1575 ml Drainage Total 80 ml Medications Current Medications Medications Dose Ordered Sig/Yg Route Start Time Stop Time Status Last Admin Dose Admin Hydromorphone HCl 0.5 mg Q3HPRN PRN IV 01/03/25 11:45 Hold 01/03/25 14:16 0.5 MG Potassium Chloride/Dextrose/ Sod Cl 1,000 ml @ 75 mls/hr [id number] IV 01/03/25 16:15 01/04/25 06:33 75 MLS/HR Hydromorphone HCl 1 mg Q3HPRN PRN IV 01/03/25 16:15 01/04/25 11:33 1 MG Acetaminophen/ Codeine Phosphate 1 tab Q4HP PRN PO 01/03/25 16:15 Hold Cefazolin Sodium/ Dextrose 50 ml @ 50 mls/hr Q8HR IV 01/03/25 22:00 01/04/25 06:30 50 MLS/HR Acetaminophen/ Hydrocodone Bitart 1 tab Q4HP PRN PO 01/03/25 17:00 01/04/25 06:44 1 TAB Ondansetron HCl 4 mg Q4HP PRN IV 01/03/25 17:00 Docusate Sodium 100 mg BIDPRN PRN PO 01/03/25 17:00 Acetaminophen 650 mg Q6HP PRN PO 01/03/25 17:00 Laboratory Results Laboratory Tests 01/04/25 06:19 Chemistry Test 01/03/25 18:22 01/04/25 06:19 Albumin 3.6 g/dL (3.2-4.8) Calcium Level 8.6 mg/dL (8.7-10.4) L 8.5 mg/dL (8.7-10.4) L Total Protein 6.2 g/dL (5.7-8.2) Coagulation Test 01/03/25 18:22 Prothrombin Time 11.2 sec (9.3-11.8) Prothrombin Time INR 1.06 (0.9-1.15) LFT Test 01/03/25 18:22 Alanine Aminotransferase (ALT) 36 U/L (7-40) Alkaline Phosphatase 166 U/L (46-116) H Aspartate Amino Transferase (AST) 21 U/L (13-40) Total Bilirubin 0.6 mg/dL (0.2-1.0) Labs and/or images reviewed: Labs reviewed by me, Image(s) reviewed by me Assessment/Plan Assessment/Plan Large Hematoma of right inguinal region, status post drain by , continue Ancef and Dilaudid Large, complex hydrocele in right scrotum, Possible testicular torsion History of right inguinal hernia repair about four weeks ago No blood supply to the right testis by ultrasound prior to surgery, repeat ultrasound after the surgery ordered, urology consult by for Dr Venegas Plan discussed with: Patient Date of Service: Jan 04, 2025 Billing Provider: CAROLINA RODRIGUEZ MD Common Visit Codes: [id number] INP/OBS CARE(HIGH) CAROLINA RODRIGUEZ MD Jan 04, 2025 12:52
--- NOTE | 2025-01-04 13:46 | DVH ---
ULTRASOUND OF SCROTUM AND CONTENTS. INDICATION: Right testicular ultrasound to ruled out torsion COMPARISON: US TESTICULAR ULTRASOUND on DOS: 01/03/25 TECHNIQUE: Multiple real-time grayscale sonographic and color and duplex Doppler images of the scrotu m and its contents were obtained. FINDINGS: Limited study for reassessment. Large complex right-sided hydrocele with septations again noted. No appreciable vascularity is again seen within the right testicle. Echotexture appears slightly hete rogeneous. Diffuse scrotal thickening. IMPRESSION: Persistent lack of flow within the right testicle with large complex right-sided hydrocele.
[2025-01-05 01:00] VITALS: BP 103/60; PULSE 60; RESP 18; TEMP 98.4; O2SAT 96
[2025-01-05 05:00] VITALS: BP 99/63; PULSE 77; RESP 18; TEMP 98.2; O2SAT 95
--- NOTE | 2025-01-05 08:28 | DVHPN2 ---
Reviewed: Care Plan, H&P, Labs, Medications, Previous Orders, Radiology Changes from previous H/P or p: No Changes Eyes: No Pain, No Vision change, No Conjunctivae inflammation, No Eyelid inflammation, No Other, No Redness ENT: No Ear pain, No Ear discharge, No Nose pain, No Nose discharge, No Nose congestion, No Mouth pain, No Mouth swelling, No Throat pain, No Throat swelling, No Other Cardiovascular: No Chest Pain, No Palpitations, No Orthopnea, No Paroxysmal Noc. Dyspnea, No Edema, No Lt Headedness, No Other Respiratory: No Cough, No Dry, No Shortness of breath, No SOB with excertion, No Wheezing, No Hemoptysis, No Pleuritic Pain, No Sputum, No Other Gastrointestinal: No Nausea, No Vomiting, No Abdominal Pain, No Diarrhea, No Constipation, No Melena, No Hematochezia, No Other Genitourinary: No Dysuria, No Frequency, No Incontinence, No Hematuria, No Retention; Other (right testicle pain and swelling) Musculoskeletal: other (right groin pain); No neck pain, No shoulder pain, No arm pain, No back pain, No hand pain, No leg pain, No foot pain Skin: No Rash, No Lesions, No Jaundice, No Bruising, No Other Objective Vitals Vital Signs Date Time Temp Pulse Resp B/P (MAP) Pulse Ox O2 Delivery O2 Flow Rate FiO2 01/05/25 06:04 66 18 110/71 01/05/25 05:00 98.2 95 98.2 01/04/25 20:00 Room Air* 0 21 Intake/Output Intake and Output 01/05/25 07:00 Intake Total 3310 ml Output Total 8325 ml Balance -5015 ml Intake Oral 3310 ml Output Urine Total 8250 ml Drainage Total 75 ml Medications Current Medications Medications Dose Ordered Sig/Yg Route Start Time Stop Time Status Last Admin Dose Admin Hydromorphone HCl 0.5 mg Q3HPRN PRN IV 01/03/25 11:45 Hold 01/03/25 14:16 0.5 MG Potassium Chloride/Dextrose/ Sod Cl 1,000 ml @ 75 mls/hr [id number] IV 01/03/25 16:15 01/04/25 21:44 75 MLS/HR Hydromorphone HCl 1 mg Q3HPRN PRN IV 01/03/25 16:15 01/05/25 05:34 1 MG Acetaminophen/ Codeine Phosphate 1 tab Q4HP PRN PO 01/03/25 16:15 Hold Cefazolin Sodium/ Dextrose 50 ml @ 50 mls/hr Q8HR IV 01/03/25 22:00 01/05/25 05:14 50 MLS/HR Acetaminophen/ Hydrocodone Bitart 1 tab Q4HP PRN PO 01/03/25 17:00 01/05/25 06:43 1 TAB Ondansetron HCl 4 mg Q4HP PRN IV 01/03/25 17:00 Docusate Sodium 100 mg BIDPRN PRN PO 01/03/25 17:00 Acetaminophen 650 mg Q6HP PRN PO 01/03/25 17:00 Laboratory Results Laboratory Tests 01/04/25 06:19 Labs and/or images reviewed: Labs reviewed by me, Image(s) reviewed by me Assessment/Plan Assessment/Plan Large Hematoma of right inguinal region, status post drain by , continue Ancef and Dilaudid Large, complex hydrocele in right scrotum, Possible testicular torsion History of right inguinal hernia repair about four weeks ago No blood supply to the right testis by ultrasound prior to surgery Repeat ultrasound on 01/04/2025 postprocedure shows Persistent lack of flow within the right testicle with large complex right-sided hydrocele. Spoke to Dr. Starkey, he advised the patient has had ischemic right testicle even one month ago prior to hernia repair. Plan discussed with: Patient My Orders Orders - CAROLINA RODRIGUEZ MD Procedure Category Date Status Time Testicular Ultrasound US 01/04/25 Resulted 12:45 * Urology Consult CONS 01/04/25 Transmitted 12:45 Regular Diet DIET 01/04/25 Transmitted Lunch Date of Service: Jan 05, 2025 Billing Provider: CAROLINA RODRIGUEZ MD Common Visit Codes: [id number] INP/OBS CARE(HIGH) CAROLINA RODRIGUEZ MD Jan 05, 2025 08:28
[2025-01-05 08:35] VITALS: BP 120/66; PULSE 62; RESP 17; TEMP 98; O2SAT 98
--- NOTE | 2025-01-05 08:53 | DVHINCON2 ---
Date of service: Jan 05, 2025 Referring Physician Jaky Reason for Consultation Right hydrocele Right testicular atrophy History of Present Illness Patient underwent right inguinal hernia repair one month ago. He was taken to OR by Dr. Starkey yesterday for hematoma evacuation. Preoperatively and postoperatively, there is no blood flow to right testicle. PATIENT: CA RAMACHANDRANACCT: [id number] UNIT: [id number] : 1980 LOC: [facility] ROOM / BED: [facility] / A AGE / SEX: 44 / M ADM STATUS: ADM IN SERVICE 1245 ORDERING PHYSICIAN: CAROLINA RODRIGUEZ MD PROCEDURE(s): TESUS - TESTICULAR ULTRASOUND REASON: Right testicular ultrasound to ruled out torsion ORDER NUMBER(s): [id number], ACCESSION NUMBER(s): [id number] ULTRASOUND OF SCROTUM AND CONTENTS. INDICATION: Right testicular ultrasound to ruled out torsion COMPARISON: US TESTICULAR ULTRASOUND on DOS: 01/03/25 TECHNIQUE: Multiple real-time grayscale sonographic and color and duplex Doppler images of the scrotum and its contents were obtained. FINDINGS: Limited study for reassessment. Large complex right-sided hydrocele with septations again noted. No appreciable vascularity is again seen within the right testicle. Echotexture appears slightly heterogeneous. Diffuse scrotal thickening. IMPRESSION: Persistent lack of flow within the right testicle with large complex right-sided hydrocele. ATED BY: HERACLIO LEONARD MD DICTATED DATE/TIME: 01/04/25 1344 SIGNED BY: HERACLIO LEONARD MD SIGNED DATE/TIME: 01/04/25 1344 CC: Past Medical History Hernia Past Surgical History Hernia repair Family History: Diabetes mellitus G8 MOTHER Allergies: Coded Allergies: No Known Drug Allergy (Verified Allergy, Unknown, 11/16/24) Home Meds No Active Prescriptions or Reported Meds Vital Signs Vital Signs Date Time Temp Pulse Resp B/P (MAP) Pulse Ox O2 Delivery O2 Flow Rate FiO2 01/05/25 06:04 66 18 110/71 01/05/25 05:00 98.2 95 98.2 01/04/25 20:00 Room Air* 0 21 Labs/Diagnostic Data Labs Test 01/04/25 06:19 01/03/25 18:22 Range/Units White Blood Count 9.2 4.4-10.8 10^3/uL Red Blood Count 4.70 4.5-5.90 10^6/uL Hemoglobin 14.1 13.5-17.5 g/dL Hematocrit 40.1 L 41.0-53.0 % Mean Corpuscular Volume 85.3 80.0-100.0 fL Mean Corpuscular Hemoglobin 29.9 28.0-32.0 pg Mean Corpuscular Hemoglobin Concent 35.1 32.0-36.0 g/dL Red Cell Distribution Width 12.4 11.8-14.3 % Platelet Count 186 140-450 10^3/uL Mean Platelet Volume 9.2 6.9-10.8 fL Neutrophils (%) (Auto) 72.0 37.0-80.0 % Lymphocytes (%) (Auto) 18.4 10.0-50.0 % Monocytes (%) (Auto) 8.5 0.0-12.0 % Eosinophils (%) (Auto) 0.8 0.0-7.0 % Basophils (%) (Auto) 0.3 0.0-2.0 % Neutrophils # (Auto) 6.6 1.6-8.6 10 ^3/uL Lymphocytes # (Auto) 1.7 0.4-5.4 10 ^3/uL Monocytes # (Auto) 0.8 0-1.3 10 ^3/uL Eosinophils # (Auto) 0.1 0-0.8 10 ^3/uL Basophils # (Auto) 0 0-0.2 10 ^3/uL Nucleated Red Blood Cells 0.1 % Sodium Level 138 136-145 mmol/L Potassium Level 4.1 3.5-5.1 mmol/L Chloride Level 102 98-107 mmol/L Carbon Dioxide Level 28 20-31 mmol/L Anion Gap 8 5-15 Blood Urea Nitrogen 7 L 9-23 mg/dL Creatinine 0.63 L 0.700-1.30 mg/dL Glomerular Filtration Rate Calc 120 >90 mL/min BUN/Creatinine Ratio 11.1 10.0-20.0 Serum Glucose 105 74-106 mg/dL Calcium Level 8.5 L 8.7-10.4 mg/dL Prothrombin Time 11.2 9.3-11.8 sec Prothrombin Time INR 1.06 0.9-1.15 Total Bilirubin 0.6 0.2-1.0 mg/dL Aspartate Amino Transferase (AST) 21 13-40 U/L Alanine Aminotransferase (ALT) 36 7-40 U/L Alkaline Phosphatase 166 H 46-116 U/L Total Protein 6.2 5.7-8.2 g/dL Albumin 3.6 3.2-4.8 g/dL Assessment Right hydrocele Right testicular failure Plan/Recommendation Right simple orchiectomy as outpatient in 6 weeks TBA Plan discussed with: Patient, Other STEVIE HUYNH MD Jan 05, 2025 08:53
--- NOTE | 2025-01-05 09:14 | DVHPN2 ---
Subjective Date Seen: Jan 05, 2025 Post op day Post op day: 2 Patient reports: No new complaints Nursing reports: No new complaints General: Normal HNT: Normal Cardiovascular: Normal Respiratory: Normal Gastrointestinal: Normal Genitourinary: Other (scrotal pain) Musculoskeletal: Normal Neurological: Normal Objective Vitals Vital Sign Date Time Temp Pulse Resp B/P (MAP) Pulse Ox O2 Delivery O2 Flow Rate FiO2 01/05/25 06:04 66 18 110/71 01/05/25 05:00 98.2 95 98.2 01/04/25 20:00 Room Air* 0 21 Total Intake and Output 01/04/25 01/04/25 01/05/25 14:59 22:59 06:59 Intake Total 1060 ml 1250 ml 1000 ml Output Total 4150 ml 4175 ml Balance 1060 ml -2900 ml -3175 ml Medications Current Medications Medications Dose Ordered Sig/Yg Route Start Time Stop Time Status Last Admin Dose Admin Hydromorphone HCl 0.5 mg Q3HPRN PRN IV 01/03/25 11:45 Hold 01/03/25 14:16 0.5 MG Potassium Chloride/Dextrose/ Sod Cl 1,000 ml @ 75 mls/hr [id number] IV 01/03/25 16:15 01/04/25 21:44 75 MLS/HR Hydromorphone HCl 1 mg Q3HPRN PRN IV 01/03/25 16:15 01/05/25 05:34 1 MG Acetaminophen/ Codeine Phosphate 1 tab Q4HP PRN PO 01/03/25 16:15 Hold Cefazolin Sodium/ Dextrose 50 ml @ 50 mls/hr Q8HR IV 01/03/25 22:00 01/05/25 05:14 50 MLS/HR Acetaminophen/ Hydrocodone Bitart 1 tab Q4HP PRN PO 01/03/25 17:00 01/05/25 06:43 1 TAB Ondansetron HCl 4 mg Q4HP PRN IV 01/03/25 17:00 Docusate Sodium 100 mg BIDPRN PRN PO 01/03/25 17:00 Acetaminophen 650 mg Q6HP PRN PO 01/03/25 17:00 General: Normal, Well developed Head/Eyes: Normal ENT: Normal Neck: Normal, Supple Lungs: Normal, Normal inspection Cardiovascular: Normal, Regular rate and rhythm Abdominal: Normal, Soft Extremities: Normal, No clubbing Labs and Microbiology Laboratory Tests 01/04/25 06:19 Test 01/04/25 06:19 Range/Units Serum Glucose 105 74-106 mg/dL Ass/Plan Labs and/or images reviewed: Labs reviewed by me, Image(s) reviewed by me Assessment/Plan patient feeling better, complaint of pain from scrotal area due to [place] and RICA drain swelling of scrotum , appropriately tender tender to palpation RICA drain serous sanguinous tolerating diet , denies nausea or vomiting, BM today Plan: patient to ambulate DC hairston possible discharge tomorrow Prognosis: Good Plan discussed with patient Visit Coding Surgery Date of Service if different f: Jan 05, 2025 Billing Provider: JAZMYN CORDOVA MD Surgery Visit Codes: [id number] INP/OBS CARE(HIGH) ENIO PHILLIPS NP Jan 05, 2025 09:14
[2025-01-05 13:00] VITALS: BP 110/75; PULSE 63; RESP 17; TEMP 98.4; O2SAT 94
[2025-01-05 16:40] VITALS: BP 120/80; PULSE 63; RESP 18; TEMP 98.2; O2SAT 97
[2025-01-05 21:00] VITALS: BP 105/75; PULSE 70; RESP 16; TEMP 97.9; O2SAT 97
[2025-01-06] VITALS (10 sets, daily range): BP systolic 107–128; BP diastolic 63–87; PULSE 65–87; RESP 16–20; TEMP 36.9–37.2; O2SAT 95–100
--- NOTE | 2025-01-06 12:12 | DVHPN2 ---
Subjective Date Seen: Jan 06, 2025 Post op day Post op day: 2 Patient reports: No new complaints Nursing reports: No new complaints General: Normal HNT: Normal Cardiovascular: Normal Respiratory: Normal Gastrointestinal: Normal Genitourinary: Normal Musculoskeletal: Normal Neurological: Normal Objective Vitals Vital Sign Date Time Temp Pulse Resp B/P (MAP) Pulse Ox O2 Delivery O2 Flow Rate FiO2 01/06/25 09:17 82 18 128/74 01/06/25 09:00 98.4 98 98.4 01/06/25 08:00 Room Air* 0 21 Total Intake and Output 01/05/25 01/05/25 01/06/25 15:00 23:00 07:00 Intake Total 476 ml 900 ml 1600 ml Output Total 1200 ml 2100 ml Balance 476 ml -300 ml -500 ml Medications Current Medications Medications Dose Ordered Sig/Yg Route Start Time Stop Time Status Last Admin Dose Admin Hydromorphone HCl 0.5 mg Q3HPRN PRN IV 01/03/25 11:45 Hold 01/03/25 14:16 0.5 MG Potassium Chloride/Dextrose/ Sod Cl 1,000 ml @ 75 mls/hr [id number] IV 01/03/25 16:15 01/06/25 09:18 75 MLS/HR Hydromorphone HCl 1 mg Q3HPRN PRN IV 01/03/25 16:15 01/06/25 09:17 1 MG Acetaminophen/ Codeine Phosphate 1 tab Q4HP PRN PO 01/03/25 16:15 Hold Cefazolin Sodium/ Dextrose 50 ml @ 50 mls/hr Q8HR IV 01/03/25 22:00 01/06/25 05:13 50 MLS/HR Acetaminophen/ Hydrocodone Bitart 1 tab Q4HP PRN PO 01/03/25 17:00 01/05/25 14:08 1 TAB Ondansetron HCl 4 mg Q4HP PRN IV 01/03/25 17:00 Docusate Sodium 100 mg BIDPRN PRN PO 01/03/25 17:00 Acetaminophen 650 mg Q6HP PRN PO 01/03/25 17:00 General: Normal, Well developed Head/Eyes: Normal ENT: Normal Neck: Normal, Supple Lungs: Normal, Normal inspection Cardiovascular: Normal, Regular rate and rhythm Abdominal: Normal, Soft Extremities: Normal, No clubbing Labs and Microbiology Laboratory Tests 01/04/25 06:19 Test 01/04/25 06:19 Range/Units Serum Glucose 105 74-106 mg/dL Ass/Plan Labs and/or images reviewed: Labs reviewed by me, Image(s) reviewed by me Assessment/Plan patient feeling better, complaint of pain from scrotal area due to Ha[place]on and RICA drain swelling of scrotum , appropriately tender tender to palpation RICA drain serous sanguinous tolerating diet , denies nausea or vomiting, BM today Plan: patient to ambulate DC hairston possible discharge tomorrow 01/06/25 patient feeling better, swelling of scrotum expected however improved from yesterday , appropriately tender tender to palpation minimal RICA drain serous sanguinous tolerating diet , denies nausea or vomiting,bowel activity Plan: ok to discharge per surgery point of view patient to follow up in surgery clinic in 7-10 days ok to shower Prognosis: Good Plan discussed with patient, dr. newman Visit Coding Surgery Date of Service if different f: Jan 06, 2025 Billing Provider: JAZMYN NEWMAN MD Surgery Visit Codes: [id number] INP/OBS CARE(HIGH) ENIO PHILLIPS NP Jan 06, 2025 12:12
--- NOTE | 2025-01-06 13:52 | DVHPN2 ---
Reviewed: Care Plan, H&P, Labs, Medications, Previous Orders, Radiology Changes from previous H/P or p: No Changes General: Per HPI Eyes: No Pain, No Vision change, No Conjunctivae inflammation, No Eyelid inflammation, No Other, No Redness ENT: No Ear pain, No Ear discharge, No Nose pain, No Nose discharge, No Nose congestion, No Mouth pain, No Mouth swelling, No Throat pain, No Throat swelling, No Other Cardiovascular: No Chest Pain, No Palpitations, No Orthopnea, No Paroxysmal Noc. Dyspnea, No Edema, No Lt Headedness, No Other Respiratory: No Cough, No Dry, No Shortness of breath, No SOB with excertion, No Wheezing, No Hemoptysis, No Pleuritic Pain, No Sputum, No Other Gastrointestinal: No Nausea, No Vomiting, No Abdominal Pain, No Diarrhea, No Constipation, No Melena, No Hematochezia, No Other Genitourinary: No Dysuria, No Frequency, No Incontinence, No Hematuria, No Retention; Other (right testicle pain and swelling) Musculoskeletal: other (right groin pain); No neck pain, No shoulder pain, No arm pain, No back pain, No hand pain, No leg pain, No foot pain Skin: No Rash, No Lesions, No Jaundice, No Bruising, No Other Objective Vitals Vital Signs Date Time Temp Pulse Resp B/P (MAP) Pulse Ox O2 Delivery O2 Flow Rate FiO2 01/06/25 13:33 71 18 107/67 01/06/25 09:00 98.4 98 98.4 01/06/25 08:00 Room Air* 0 21 Intake/Output Intake and Output 01/06/25 06:59 Intake Total 2976 ml Output Total 3300 ml Balance -324 ml Intake Oral 2926 ml IV Total 50 ml Output Urine Total 3300 ml # Bowel Movements 1 Medications Current Medications Medications Dose Ordered Sig/Yg Route Start Time Stop Time Status Last Admin Dose Admin Hydromorphone HCl 0.5 mg Q3HPRN PRN IV 01/03/25 11:45 Hold 01/03/25 14:16 0.5 MG Potassium Chloride/Dextrose/ Sod Cl 1,000 ml @ 75 mls/hr [id number] IV 01/03/25 16:15 01/06/25 09:18 75 MLS/HR Hydromorphone HCl 1 mg Q3HPRN PRN IV 01/03/25 16:15 01/06/25 13:33 1 MG Acetaminophen/ Codeine Phosphate 1 tab Q4HP PRN PO 01/03/25 16:15 Hold Cefazolin Sodium/ Dextrose 50 ml @ 50 mls/hr Q8HR IV 01/03/25 22:00 01/06/25 13:08 50 MLS/HR Acetaminophen/ Hydrocodone Bitart 1 tab Q4HP PRN PO 01/03/25 17:00 01/05/25 14:08 1 TAB Ondansetron HCl 4 mg Q4HP PRN IV 01/03/25 17:00 Docusate Sodium 100 mg BIDPRN PRN PO 01/03/25 17:00 Acetaminophen 650 mg Q6HP PRN PO 01/03/25 17:00 Laboratory Results Laboratory Tests 01/04/25 06:19 Assessment/Plan Assessment/Plan Large Hematoma of right inguinal region, status post drain by , continue Ancef and Dilaudid Large, complex hydrocele in right scrotum, Possible testicular torsion History of right inguinal hernia repair about four weeks ago No blood supply to the right testis by ultrasound prior to surgery Repeat ultrasound on 01/04/2025 postprocedure shows Persistent lack of flow within the right testicle with large complex right-sided hydrocele. Spoke to Dr. Starkey, he advised the patient has had ischemic right testicle even one month ago prior to hernia repair. Plan discussed with: Patient Date of Service: Jan 06, 2025 Billing Provider: MIRANDA MOSES DO Common Visit Codes: [id number] INP/OBS CARE(HIGH) MIRANDA MOSES DO Jan 06, 2025 13:52
[2025-01-06] MEDS ORDERED: CEPH250C PO (16:36)
--- NOTE | 2025-01-06 16:37 | DVHDS2 ---
Discharge Summary Date of Admission Jan 03, 2025 at 10:37 Date of Discharge: Jan 06, 2025 Labs/Diagnostic Data: Laboratory Results Test 01/04/25 06:19 01/03/25 18:22 White Blood Count 9.2 10^3/uL (4.4-10.8) Red Blood Count 4.70 10^6/uL (4.5-5.90) Hemoglobin 14.1 g/dL (13.5-17.5) Hematocrit 40.1 % (41.0-53.0) Mean Corpuscular Volume 85.3 fL (80.0-100.0) Mean Corpuscular Hemoglobin 29.9 pg (28.0-32.0) Mean Corpuscular Hemoglobin Concent 35.1 g/dL (32.0-36.0) Red Cell Distribution Width 12.4 % (11.8-14.3) Platelet Count 186 10^3/uL (140-450) Mean Platelet Volume 9.2 fL (6.9-10.8) Neutrophils (%) (Auto) 72.0 % (37.0-80.0) Lymphocytes (%) (Auto) 18.4 % (10.0-50.0) Monocytes (%) (Auto) 8.5 % (0.0-12.0) Eosinophils (%) (Auto) 0.8 % (0.0-7.0) Basophils (%) (Auto) 0.3 % (0.0-2.0) Neutrophils # (Auto) 6.6 10 ^3/uL (1.6-8.6) Lymphocytes # (Auto) 1.7 10 ^3/uL (0.4-5.4) Monocytes # (Auto) 0.8 10 ^3/uL (0-1.3) Eosinophils # (Auto) 0.1 10 ^3/uL (0-0.8) Basophils # (Auto) 0 10 ^3/uL (0-0.2) Nucleated Red Blood Cells 0.1 % Sodium Level 138 mmol/L (136-145) Potassium Level 4.1 mmol/L (3.5-5.1) Chloride Level 102 mmol/L (98-107) Carbon Dioxide Level 28 mmol/L (20-31) Anion Gap 8 (5-15) Blood Urea Nitrogen 7 mg/dL (9-23) Creatinine 0.63 mg/dL (0.700-1.30) Glomerular Filtration Rate Calc 120 mL/min (>90) BUN/Creatinine Ratio 11.1 (10.0-20.0) Serum Glucose 105 mg/dL (74-106) Calcium Level 8.5 mg/dL (8.7-10.4) Prothrombin Time 11.2 sec (9.3-11.8) Prothrombin Time INR 1.06 (0.9-1.15) Total Bilirubin 0.6 mg/dL (0.2-1.0) Aspartate Amino Transferase (AST) 21 U/L (13-40) Alanine Aminotransferase (ALT) 36 U/L (7-40) Alkaline Phosphatase 166 U/L (46-116) Total Protein 6.2 g/dL (5.7-8.2) Albumin 3.6 g/dL (3.2-4.8) Other Laboratory Tests 01/04/25 06:19 Brief Hx & Hospital Course: Large Hematoma of right inguinal region, status post drain by , continue Ancef and Dilaudid Large, complex hydrocele in right scrotum, Possible testicular torsion History of right inguinal hernia repair about four weeks ago No blood supply to the right testis by ultrasound prior to surgery Repeat ultrasound on 01/04/2025 postprocedure shows Persistent lack of flow within the right testicle with large complex right-sided hydrocele. Spoke to Dr. Starkey, he advised the patient has had ischemic right testicle even one month ago prior to hernia repair. Condition at Discharge: Good Final Diagnosis/Problems List see above Discharge Disposition: Home Discharge Instruct/Medications Diet: Cardiac 2g Na,low cholest Activity: Light activity Scheduled Cephalexin (Keflex Capsule), 2 CAP PO BID Scheduled PRN Acetaminophen W/ Codeine (Tylenol W/Cod #3), 1 TAB PO Q4HP PRN Discharge Statement: "Patient was advised to return to the ER or call 911 if any headaches, dizziness, shortness of breath, chest pain, abdominal pain, bleeding, fevers, or worsening of medical condition. Patient was counseled about treatment plan, medications, possible side effects, patientverbalized understanding. All questions were answered to the best of my ability. This discharge took greater then 30 minutes in planning, reviewing documentation, counseling the patient, and discussing with other team members." ASSESSMENT ASSESSMENT Assessment Date of Service: Jan 06, 2025 Billing Provider: MIRANDA MOSES DO Common Visit Codes: [id number] DISCH DAY >30min MIRANDA MOSES DO Jan 06, 2025 16:37
[2025-01-07 01:00] VITALS: BP 100/64; PULSE 66; RESP 20; TEMP 97.8; O2SAT 96
[2025-01-07 05:00] VITALS: BP 108/70; PULSE 60; RESP 20; TEMP 98; O2SAT 96
[2025-01-07 08:00] VITALS: PULSE 72; RESP 18; O2SAT 96
[2025-01-07] MEDS: DOCUSATE SOD 100 MG CAP PO PRN (08:06)
[2025-01-07] MEDS ORDERED: ACE3T PO (08:26)
[2025-01-07 08:57] VITALS: BP 112/67; PULSE 60; RESP 18; TEMP 97.9; O2SAT 99
== END 2025-01-07 11:15 | disposition home or self-care (01) | DRG 718 ==
LOC: WEST WING 10:37
PROVIDERS: ADMIT Internal Medicine; ATTEND Internal Medicine
PROC: 0VC50ZZ Extirpation of Matter from Scrotum, Open Approach (ICD-10-PCS; principal; 2025-01-03 15:12)
DX: N50.1 Vascular disorders of male genital organs (principal); S30.22XA Contusion of scrotum and testes, initial encounter; N43.3 Hydrocele, unspecified; E29.1 Testicular hypofunction; N50.0 Atrophy of testis; Z90.49 Acquired absence of other specified parts of digestive tract; Z79.899 Other long term (current) drug therapy; Z91.148 Patient's other noncompliance with medication regimen for other reason; Z83.3 Family history of diabetes mellitus; X58.XXXA Exposure to other specified factors, initial encounter; Y93.89 Activity, other specified; Y92.89 Other specified places as the place of occurrence of the external cause; Y99.8 Other external cause status
CPT/HCPCS: 36415; 76870; 80048; 80053; 85025; 85610; G0378; J2250; J2704; J3490